=== PATIENT | female | born 1940 | race Caucasian/White ===

== ENCOUNTER → 2023-11-17 09:53 | Outpatient (REF) | payer OTHER, SELFPAY | LOC: RAD 09:53 | PROVIDERS: ATTENDING PHYSICIAN Surgery Vascular Surgery; FAMILY PHYSICIAN Family Medicine | DX: I73.9 Peripheral vascular disease, unspecified (principal) | CPT/HCPCS: 93922; 93925 ==

== ENCOUNTER → 2024-01-27 10:14 | Outpatient (REF) | payer OTHER, SELFPAY | LOC: RAD 10:14 | PROVIDERS: ATTENDING PHYSICIAN Internal Medicine Gastroenterology; FAMILY PHYSICIAN Family Medicine | DX: R63.4 Abnormal weight loss (principal) | CPT/HCPCS: 74176 ==

== ENCOUNTER → 2024-05-22 09:59 | Outpatient (REF) | payer OTHER, SELFPAY | LOC: RAD 09:59 | PROVIDERS: ATTENDING PHYSICIAN Surgery Vascular Surgery; FAMILY PHYSICIAN Family Medicine; REFERRING PHYSICIAN Orthopaedic Surgery | DX: I71.43 Infrarenal abdominal aortic aneurysm, without rupture (principal); I73.9 Peripheral vascular disease, unspecified | CPT/HCPCS: 76770; 93922; 93925 ==

== ENCOUNTER 2024-08-19 14:30 | Inpatient (IN) | payer OTHER, SELFPAY ==
[2024-08-19] VITALS (29 sets, daily range): BP systolic 103–203; BP diastolic 60–144; BMI 18.7; BMI 18.1
[2024-08-19 11:49] LABS: % Basophils 0.3 % (0-2); % Eosinophils 0.9 % (0-6); % Immature Granulocytes 0.3 % (0-0.5); % Lymphocytes 15.6 % (20.5-51.1); % Monocytes 6.4 % (1.7-9.3); % Neutrophils 76.5 % (42.2-75.2); Absolute Eosinophils 0.1 10^3/uL (0-0.7); Absolute Lymphocytes 1.2 10^3/uL (1.2-3.4); Absolute Monocytes 0.5 10^3/uL (0.1-0.6); Absolute Neutrophils 5.8 10^3/uL (1.4-6.5); Hematocrit 47.1 % (37.0-47.0); Hemoglobin 15.8 g/dL (12.0-16.0); Mean Corp Hgb Conc. 33.5 g/dL (33.0-37.0); Mean Corpuscular Hgb 33.5 pg (27.0-31.0); Mean Platelet Volume 11.4 fL (7.4-10.4); Nucleated Red Blood Cells % 0 %; Platelet Count 159 10^3/uL (130-400); Red Blood Cell Count 4.71 10^6/uL (4.20-5.40); Red Cell Dist. Width 12.4 % (11.5-14.5); White Blood Cell Count 7.5 10^3/uL (4.8-10.8)
[2024-08-19 12:11] LABS: Blood Urea Nitrogen 34 mg/dl (7-17); Calcium 9.4 mg/dl (8.4-10.2); Carbon Dioxide 25 mmol/L (22-30); Chloride 99 mmol/L (98-107); Estimated Creatinine Clearance 24 ml/min; Glucose 211 mg/dl (70-99); Sodium 132 mmol/L (135-145); eGFR 44.64
[2024-08-19 12:19] LABS: NT-proBNP 14500 pg/ml
[2024-08-19 12:35] LABS: Troponin I < 0.012 ng/ml
--- NOTE | 2024-08-19 12:59 | ED.GENMED ---
History of Present Illness
General
Chief Complaint: Breathing Problem
Source: patient and family
Exam Limitations: none
Time Seen by Provider: 08/19/24 11:24
History of Present Illness
History of Present Illness:
74-year-old female who presents with shortness of breath and increased work of breathing. Patient has a history of CHF as well as COPD. She also has a history of coronary disease. Patient states her symptoms have been progressive over the last 2
to 3 days. No reported fevers.
Past History
Past History
ED Past Medical History: CAD, CHF, COPD, GERD, HTN, Hypercholesterolemia, NIDDM, MS and Other (Ulcerative colitis, Pulmonary fibrosis, anemia, UTI, Fx Pelvis, Pyelonephritis)
ED Past Surgical History: Bowel resection (with Ileostomy due to Ulcerative colitis) and Cardiac (04/19/16: Cardiac cath with stent RCA, EF 55-60%.)
Social History
Tobacco: Former smoker
Alcohol: None
Drug: None
Personal:
Living: with family (with daughter)
Employment: Retired
Family History
Family History: Other (Noncontributory)
Phy Exam
Physical Exam
Physical Exam:
CONSTITUTIONAL Patient alert and oriented to person, place and time. Well-appearing. Vital signs reviewed.
HEAD atraumatic, normocephalic.
EYES eyelids normal to inspection, Extraocular muscles intact, Conjunctiva normal, Sclera normal.
NECK normal range of motion, Trachea midline, no jugular venous distention.
RESPIRATORY CHEST No respiratory distress noted, Chest expansion equal, Rales noted bilaterally
CARDIOVASCULAR regular rate and rhythm, Heart sounds normal.
ABDOMEN abdomen nontender, Bowel sounds normal. No distention.
BACK normal inspection, no obvious deformities
UPPER EXTREMITY range of motion normal, Motor strength normal, no cyanosis, no edema.
LOWER EXTREMITY range of motion normal, Motor strength normal, no cyanosis, no edema.
NEURO Speech normal, No focal motor deficits, Cranial Nerves intact to screening exam.
SKIN skin warm, dry, and normal in color.
Scores
Heart Failure Risk
Heart Failure Risk Score: Yes
History of Stroke or TIA: Yes
History of intubation for respiratory distress: No
Heart rate on ED arrival >/= 110: No
SaO2 <90% on arrival on room air: No
HR >/=110 during 3min walk test (or too ill to perform test): Yes
ECG has acute ischemic changes: No
Urea >/=12mmol/L (BUN 33.6mg/dL): Yes
Serum CO2>/=35mmol/L: No
Troponin I or T elevated to MS Level (0.4mg/dL): No
NT-proBNP >/=5,000ng/L (5,000pg/ml): Yes
HF Risk Score: 5
Admission Status: VERY HIGH RISK 39.8% Consider admission to hospital
Course
Orders/Labs/Results
Orders:
Orders
08/19/24 11:02
Electrocardiogram (*1) Urgent
Reason for Study: Shortness of Breath
EKG- Treatment ONCE
08/19/24 11:40
Electrocardiogram (*1) Stat
Reason for Study: Other
Other Reason for Exam: chest pain
Cardiac Monitoring- Treatment ONCE
CR Chest - 2 Views Urgent
Comment:
Reason For Exam: dyspnea
08/19/24 11:42
Basic Metabolic Panel Urgent
Complete Blood Count/With Diff Urgent
NT-proBNP Urgent
Troponin I Urgent
08/19/24 12:58
Furosemide [Lasix] 40 mg IV NOW STA
08/19/24 13:17
Nitroglycerin 100 mg/250 ml [Nitroglycerin Premix] 100 mg in 250 ml IV NOW
Initial dose in mcg/min, then titrate:: 5
Titrate to keep:: SBP < 160 mmHg
Titrate by mcg/min:: 5 mcg/min, may increase by 10 mcg/min if dose > 20 mcg/min
Frequency of titrations (minutes):: every 3-5 minutes
Maximum dose in mcg/min:: 200
Begin to taper infusion when:: Remained at goal for 2hrs
Taper by mcg/min:: 5 mcg/min
Frequency of taper (minutes) if patient maintains goal:: 30
Taper to off?: Yes
If infusion off & no longer maintaining goal:: Contact Provider
08/19/24 13:46
Admit/Transfer Patient As Directed
Co-Sign Provider:
Level of Care: Inpatient admission
Assign to:: IMU- Intermediate Care
Physician / Group: Alem
Diagnosis: CHF
Reason for Hospitalization: IV diuretics
Expected length of stay greater than two midnights?: Yes
ELOS- Estimated Length of Stay in days: 3
I certify the patient meets the requirements for IP care: Yes
08/19/24 13:48
Code Status As Directed
Resuscitation Status: Full Code
08/19/24 13:51
EKG- Treatment ONCE
08/19/24 14:02
Labetalol HCl [Trandate] 10 mg IV NOW STA
08/19/24 14:03
Furosemide [Lasix] 40 mg IV NOW STA
08/19/24 14:08
Troponin I Routine
08/19/24 14:22
Add On- LAB Urgent
Tests Added?: TSH w/Reflex
08/19/24 14:27
Bladder Scan As Directed
Follow Bladder Retention/Intermittent Cath Algorithm?: Yes
PRN if no void in __ hours: 6
Frequency: Per Retention Algorithm
If Bladder Scan Result >: 400
then:: Straight cath
Straight Cath As Directed
Frequency: Per Retention Algorithm
Additional Instructions: straight cath as needed per acute urinary retention algorithm for 24 hrs
Additional Instructions: for bladder scan greater than 400 mL
08/19/24 14:43
Arterial Blood Gas Urgent
%Oxygen/Room Air: 94% on 2L
08/19/24 Dinner
2000 calorie (17 carb) Diabetic
At Your Request: Limited Participation
Diabetic Diet: Sodium, 2 Gram
Oral Supplement (If unsure of flavor order apple or vanilla): Ensure Enlive Vanilla
Supplement Frequency: BID
08/19/24 15:19
Free T4 Urgent
TSH Reflex To Free T4 Urgent
Comment: ADD ON
08/19/24 17:43
Dextrose 50%-Water [Dextrose 50% Syringe] 12.5 grams IV [id number] PRN
Glucagon [GlucaGen] 1 mg IM PRN PRN
Heparin 5,000 units SC Q8
Insulin Aspart Corrective Low [Novolog Flexpen-Low Resistance] See Protocol SC AC
Nitroglycerin 100 mg/250 ml [Nitroglycerin Premix] 100 mg in 250 ml IV PER PROTOCOL
Currently infusing. Continue current dose and titrate:: Yes
Titrate to keep:: SBP < 160 mmHg
Titrate by mcg/min:: 5 mcg/min, may increase by 10 mcg/min if dose > 20 mcg/min
Frequency of titrations (minutes):: every 3-5 minutes
Maximum dose in mcg/min:: 200
Begin to taper infusion when:: Remained at goal for 2hrs
Taper by mcg/min:: 5 mcg/min
Frequency of taper (minutes) if patient maintains goal:: 30
Taper to off?: Yes
If infusion off & no longer maintaining goal:: Contact Provider
08/19/24 17:43
DIETARY CONSULT Routine
Reason for Consult: malnutrition
HF DIETARY CONSULT Routine
HF EDUCATOR CONSULT Routine
Comment:
Activity As Directed
Activity Level: Out of Bed- Chair
Bedside Glucose Monitoring As Directed
Frequency: AC&HS
Additional Instructions:: Change to q6h if pt on TPN, tube feeding or not eating
Intake/ Output As Directed
Frequency: Per unit guidelines
Patient Education As Directed
Type: CHF folder
Comment: give on admission. Document in Interdisciplinary Education record
Sleep Apnea Assessment by RN As Directed
Comment:
Physician Instructions:
Vital Signs As Directed
Frequency: Other
Additional Instructions:: Q12 or per unit guidelines if more frequent.
Weight As Directed
Frequency: Daily
Type of Scale: Standing Scale
Comment: Daily morning weight. If unable to stand, use balanced bed scale.
Weight As Directed
Frequency: Once
Type of Scale: Standing Scale
Comment: Upon Admission. If unable to stand, use balanced bed scale.
Pulse Ox/cont/shift [RESP] Routine
Quantity: 1
Special Instructions: Daily pulse oximetry at rest. If greater than 92% at rest also obtain pulse oximetry
while ambulating as tolerated.
DX Deep Vein Thrombosis Video Routine
08/19/24 20:00
Carvedilol [Coreg] 6.25 mg PO BID
08/20/24 05:02
Basic Metabolic Panel IN AM
Glycohemoglobin (HgbA1c) IN AM
Magnesium IN AM
TSH Reflex To Free T4 IN AM
08/20/24 08:00
Aspirin Low Dose EC [Aspir Low (Enteric Coated)] 81 mg PO DAILY
Carbamazepine [Tegretol] 200 mg PO DAILY
Furosemide [Lasix] 40 mg IV DAILY
Pantoprazole [Protonix] 40 mg PO DAILY
08/21/24 06:00
Basic Metabolic Panel IN AM
08/22/24 06:00
Basic Metabolic Panel IN AM
Abnormal Lab Results
08/19/24
11:42
Hct 47.1 H %
(37.0-47.0)
MCV 100.0 H fL
(81.0-99.0)
MCH 33.5 H pg
(27.0-31.0)
MPV 11.4 H fL
(7.4-10.4)
Neutrophils % 76.5 H %
(42.2-75.2)
Lymphocytes % 15.6 L %
(20.5-51.1)
Sodium 132 L mmol/L
(135-145)
BUN 34 H mg/dl
(7-17)
Creatinine 1.2 H mg/dL
(0.6-1.0)
Glucose 211 H mg/dl
(70-99)
08/19/24 11:42
08/19/24 13:46
Vital Signs
Initial and Last Documented VS:
Initial Vital Signs
Pulse Resp BP Pulse Ox
83 32 178/109 95
08/19/24 10:55 08/19/24 10:55 08/19/24 10:55 08/19/24 10:55
Last Documented Vital Signs
Temp Pulse Resp BP Pulse Ox
97.5 F 91 26 151/71 95
08/20/24 20:19 08/20/24 20:05 08/20/24 18:15 08/20/24 20:05 08/20/24 20:13
MDM/Problems Addressed
MDM/Problems Addressed:
Acute decompensated congestive heart failure, acute uncontrolled hypertension
*Radiology
Radiology exam reviewed: preliminary read by ED provider (CHF)
*Pulse Oximetry
Patient hypoxic: yes
*EKG
Interpreted by ED Provider?: Yes
Interpretation: abnormal
Rate: normal
Rhythm: sinus
QRS Pattern: right bundle branch block
Ischemia: non-specific ST changes
*Delivery Rep Interpretation
Rate: normal
Interpretation: normal
Rhythm: sinus
*Critical Care Note
Total Time (30-74mins, 75-104mins- exclusive of procedures): 30 minutes
Data Reviewed
Source: patient and family
Prescriptions/Medications Considered But Not Given:
Consider antibiotics but more suspect heart failure
Patient Management
Discussion with other providers: Hospitalist
Escalation/DeEscalation of care consider admission/obs:
84-year-old female presents with uncontrolled hypertension and heart failure. Given Lasix and started on nitroglycerin drip. Shortly at that she did feel bit worse and family thought it was related to nitroglycerin but I do suspect related to
progressive heart failure. Seen by cardiology. Admit
ED Attending Note
-
Portions of this chart may have been created with voice recognition software.� Occasional wrong word or��sound alike� substitutions may have occurred due to the inherent limitations of voice recognition software.
Discharge Plan
Departure
Patient Disposition: Admit
Date of Disposition: 08/19/24
Time of Disposition: 12:59
Admit to: Telemetry
Presentation/result/management discussed w/ accepting MD/DO: Hospitalist
Discharge Problem:
Congestive heart failure (CHF)
Interventions
Interventions:
*Risk Screen - Suicide Last Done: 08/19/24 10:55
*General Assessment Last Done: 08/19/24 11:25
*Neglect/Abuse Screening Last Done: 08/19/24 16:20
ED- Fall Risk Assessment Last Done: 08/19/24 11:28
*ED COVID-19 Vaccine History Last Done: 08/19/24 11:25
*Nursing Disposition Last Done: 08/19/24 17:43
ED- Cardiac Assessment Last Done: 08/19/24 11:25
ED- Pulmonary Assessment Last Done: 08/19/24 11:25
Discharge Date and Time
Discharge Date/Time: 08/19/24 17:44
[2024-08-19] MEDS: LASIX 40 MG IV ×2 (13:15→14:11)
--- NOTE | 2024-08-19 13:18 | HPS.HSE ---
Family Physician
-
Family Physician: Breanne Mayorga
Chief Complaint
-
Shortness of Breath
History of Present Illness
Patient is an 84 y/o female past medical history ASCVD, CHF, HTN, and DM who presents with increasing shortness of breath. Patient reports worsening shortness of breath over the past 2 days. She denied chest pain during my initial interview, but
then reported chest pain to nurse. She does not weight herself on a regular basis. She denies cough, fever, sweats or chills.
Medical History
Past Medical History
Past Medical History: Reports Other
Additional Past Medical History:
ASCVD (CAD, PAD, CVA)
Chronic Heart Failure
Essential Hypertension
Hyperlipidemia
Diabetes Mellitus, Type II
CKD Stage II
COPD
Seizure Disorder
Hyperthyroidism
Depression
Past Surgical History: Reports Other
Additional Past Surgical History:
AAA Endovascular Repair / Fem-Fem Bypass / RLE Endarterectomy
Colectomy with Ileostomy
Right Total Knee Replacement
Left Wrist Surgery ORIF
Social History
Tobacco: Former Smoker (Quit about 20 years ago)
Living: With Family
Family History
Family History: Not pertinent
Allergies / Home Medications
Allergies reflects when Allergies were last updated in [employer].
Home Medications with original date entered in [employer]
Allergy/Medication List:
Allergies
Allergy/AdvReac Type Severity Reaction Status Date / Time
atorvastatin Allergy MUSCLE Verified 08/19/24 10:54
ACHES
ceftriaxone sodium Allergy RED RAISED Verified 08/19/24 10:54
[From Rocephin] HIVES
levofloxacin [From Levaquin] Allergy Rash, Verified 08/19/24 10:54
chest pain
phenytoin Allergy INCREASED Verified 08/19/24 10:54
SEIZURES
Home Medications
aspirin 81 mg tablet,delayed release 81 mg PO DAILY 05/27/16
carbamazepine 200 mg tablet 200 mg PO DAILY 05/27/16
cholecalciferol (vitamin D3) 25 mcg (1,000 unit) tablet 1,000 units PO WE 01/28/17
ferrous sulfate 325 mg (65 mg iron) tablet (FeroSul) 325 mg PO WE 01/25/19
furosemide 20 mg tablet 20 mg PO MOWEFR 01/25/19
carvedilol 6.25 mg tablet 6.25 mg PO BID ##60 05/04/19
omeprazole magnesium 20 mg tablet,delayed release (Prilosec OTC) 20 mg PO DAILY 06/26/19
evolocumab 140 mg/mL subcutaneous pen injector (Repatha SureClick) 140 mg SC Q2W 08/19/24
Review of Systems
-
A 12 point ROS was completed and negative except as noted: Yes
Constitutional: Denies Fever or Chills
Respiratory: Reports See HPI
Cardiac: Denies Palpitations
Physical Exam
Vital Signs
Vital Signs
Temp Pulse Resp BP Pulse Ox
97.8 F 95 22 203/104 95
08/19/24 11:35 08/19/24 13:15 08/19/24 12:15 08/19/24 13:15 08/19/24 12:15
Physical Exam
General: Conversant and Other (Appears frail; Mild Respiratory Distress)
HEENT: Moist mucous membranes and Oxygen
Respiratory: Rales (Diffuse) and Other (Decreased breath sounds at bilateral bases with Bilateral Rales in mid lung soto; Positive use of accessory muscles)
Cardiac: S1/S2 and Regular Rhythm
GI: Soft, Non Tender and Ostomy
Rectal: Deferred by Provider
Musculoskeletal: No Clubbing, No Cyanosis and No Edema
Skin: Warm and Dry
Neuro: Awake, Alert, Oriented and Nonfocal/grossly intact
Psych: Calm
Laboratory Results
-
08/19/24 11:42
Laboratory Results
Total Bilirubin Cancelled 08/19/24 11:42
AST Cancelled 08/19/24 11:42
ALT Cancelled 08/19/24 11:42
Alkaline Phosphatase Cancelled 08/19/24 11:42
Troponin I < 0.012 ng/ml 08/19/24 11:42
Data Reviewed
-
Diagnostic Radiology: Report Reviewed by me
Lab Data: Labs Reviewed by me
Impression/Plan
-
Hypertensive Emergency in setting of Acute Heart Failure
-Give Labetalol 10mg IV Now
-Continue nitroglycerin infusion
Acute on Chronic HFpEF
-Patient with increase respiratory distress upon my evaluation
-Patient given Lasix 40mg IV initially - Will give second dose of 40mg IV Now
-Check ABG - Consider BiPAP based on result
-Check Echo
-Monitor Is&Os and Daily Weights
ASCVD (CAD s/p cardiac stent, PAD s/p AAA repair, fem-fem bypass and RLE bypass)
-Continue aspirin
Diabetes Mellitus, Type II
-Patient is not currently on medications
-Check HgbA1c
-Monitor sugars and continue coverage insulin
CKD Stage III
-Monitor creatinine closely while on diuretics
Seizure Disorder
-Continue Tegretol
Hyperthyroidism
-Patient no longer on methimazole
-Check TSH
Hyperlipidemia
-Patient maintained on Repatha as outpatient
DVT proph: SC Heparin
Code Status: Full Code
[2024-08-19] MEDS: NITROGLYCERIN PREMIX 250 IV (13:24)
[2024-08-19] MEDS: TRANDATE 10 MG IV (14:12)
--- NOTE | 2024-08-19 14:18 | W.PN.UPDATE ---
Update Note
Progress Note Update
This is an addendum to the H&P written by Marli Keen on 08/19/2024. Patient seen and examined independently with PA.
84-year-old female past medical history of CAD, mitral regurgitation, hypertension, type 2 diabetes, COPD, seizure disorder, hyperlipidemia, CVA, ulcerative colitis, abdominal aortic aneurysm status post endovascular repair, right iliac artery coil
embolization, left femoral endarterectomy, left to right femoral artery to femoral artery bypass, CKD presenting with shortness of breath and respiratory distress.
Found to have blood pressure up to 203/104.
Chest x-ray shows interstitial opacities, small bilateral pleural effusions cardiomegaly. Cardiac BNP of 14,000.
Patient with hypertensive emergency and acute CHF exacerbation.
She was given 40 IV Lasix and started nitroglycerin drip. She had increased respiratory distress and some chest pain prompting repeat EKG. Another 40 IV Lasix to be given.
IV labetalol dose to be given. Patient's respiratory status currently improved. No chest pain or abdominal pain at this time. Check ABG as she may benefit from BiPAP. Cardiology following.
[2024-08-19 14:44] LABS: Troponin I < 0.012 ng/ml
--- NOTE | 2024-08-19 14:47 | CON.CAR ---
Consultation
Consultation Request
Date/Time Consultation Requested: 08/19/24
Date/Time Consultation Performed: 08/19/24
Requesting Provider: Hortencia
Performing Provider: Grace
Reason for Consultation: CHF/HTN
Medical History
-
Chief Complaint: SOB
History of Present Illness:
84-year-old woman past medical history of heart failure with recovered ejection fraction and hypertension who presents with worsening dyspnea over the last several days found to be hypoxic and hypertensive. Severe range blood pressures in the
emergency department. Chest x-ray with diffuse infiltrates suggestive of pulmonary edema. proBNP severely elevated to 14,000.
Patient was treated for acute heart failure/hypertensive emergency with nitro drip and dose of IV Lasix. At the time of my evaluation blood pressures were still significantly elevated. Patient reportedly did not have significant urine output in
response to the Lasix.
Also reporting nausea and upset stomach but no pain. No radiation through to the back.
Past Medical History:
ASCVD (CAD, PAD, CVA)
Chronic Heart Failure
Essential Hypertension
Hyperlipidemia
Diabetes Mellitus, Type II
CKD Stage II
COPD
Seizure Disorder
Hyperthyroidism
Depression
Past Surgical History: Reports Other
Additional Past Surgical History:
AAA Endovascular Repair / Fem-Fem Bypass / RLE Endarterectomy
Colectomy with Ileostomy
Right Total Knee Replacement
Left Wrist Surgery ORIF
Past Medical History
Past Medical History: Other (As above)
Past Surgical History: Other (As above)
Social History
Tobacco: Former Smoker
Family History
Family History: Reviewed & Not Pertinent
Allergies / Home Medications
Allergy/AdvReac Type Severity Reaction Status Date / Time
atorvastatin Allergy MUSCLE Verified 08/19/24 10:54
ACHES
ceftriaxone sodium Allergy RED RAISED Verified 08/19/24 10:54
[From Rocephin] HIVES
levofloxacin [From Levaquin] Allergy Rash, Verified 08/19/24 10:54
chest pain
phenytoin Allergy INCREASED Verified 08/19/24 10:54
SEIZURES
�Medication �Instructions �Recorded �Confirmed �Type
aspirin 81 mg tablet,delayed 81 mg PO DAILY 05/27/16 08/19/24 History
release
carbamazepine 200 mg tablet 200 mg PO DAILY 05/27/16 08/19/24 History
cholecalciferol (vitamin D3) 25 1,000 units PO WE 01/28/17 08/19/24 History
mcg (1,000 unit) tablet
ferrous sulfate 325 mg (65 mg 325 mg PO WE 01/25/19 08/19/24 History
iron) tablet (FeroSul)
furosemide 20 mg tablet 20 mg PO MOWEFR 01/25/19 08/19/24 History
carvedilol 6.25 mg tablet 6.25 mg PO BID ##60 05/04/19 08/19/24 Rx
omeprazole magnesium 20 mg 20 mg PO DAILY 06/26/19 08/19/24 History
tablet,delayed release (Prilosec
OTC)
evolocumab 140 mg/mL subcutaneous 140 mg SC Q2W 08/19/24 08/19/24 History
pen injector (Repatha Aleciaick)
Review of Systems
-
History Source: Patient
All other systems: Negative unless noted
Physical Exam
Vital Signs
Temp Pulse Resp BP Pulse Ox
97.8 F 100 25 193/140 92
08/19/24 11:35 08/19/24 14:15 08/19/24 12:30 08/19/24 14:12 08/19/24 14:15
Lab Results
08/19/24 11:42
Troponin I < 0.012 ng/ml 08/19/24 14:08
Mhq-C-Gjzbaapvcop Pept 19921 pg/ml 08/19/24 11:42
Physical Exam
General: Other (Frail-appearing)
HEENT: Normocephalic
Respiratory: Crackles (Throughout) and Accessory Resp Muscle Use
Cardiac: S1/S2 and Regular Rhythm (Tachycardic)
Breast: Deferred by me
GI: Other (Ostomy in place)
Musculoskeletal: No Edema
Skin: Warm and Dry
Neuro: Awake and Alert
Psych: Other (Anxious)
Impression / Plan
-
Primary teaching fellow: Dr. Odom
Assessment:
Presentation with SOB
Acute on chronic HFpEF
HTN emergency
Recovered CM EF 35% by echo 03/28/17
CAD with h/o NSTEMI and RCA PCI 04/2016
H/o BMS to RCA 2008
H/o anterior [place] s/p BMS to LAD, RCA 2006
Interstitial fibrosis
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
AAA
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
Hx L radius s/p ORIF, L prox humerus, L pelvic fracture 2013
Left lung nodule
RBBB
HTN
HLD
NIDDM
H/o seizure disorder
H/o urinary retention
Multiple medication allergies/intolerances/noncompliance
Echo 04/2019: EF 60-65%, mild MR, aortic sclerosis
Plan:
-Presents with worsening dyspnea found to be in acute heart failure with severe range blood pressures concerning for hypertensive emergency
#Acute HF
-proBNP is severely elevated and chest x-ray suggestive of pulmonary edema
-Recommend aggressive IV diuresis, would redosed again this evening
-Currently on supplemental O2 with nasal cannula, consider positive pressure such as CPAP
-Check echo tomorrow
#HTN emergency
-Severe range blood pressures in the emergency department
-Started on nitro drip at 5, would uptitrate for goal normotension
-Also recommended IV labetalol for additional BP control
Discussed with daughter at bedside as well as admitting team PA/
Data Reviewed
-
EKG: Tracing Personally Visualized and interpreted
Radiology: Image Personally Visualized and interpreted
Medical Tests (Nuc Med, Echo etc): Report Reviewed by me
Labs: Labs Reviewed by me
Old Records: Reviewed
[2024-08-19 14:55] LABS: B.E. -0.2 mmol/L; HCO3 24.8 mmol/L (21-28); O2 Saturation % 95.8 % (94-98); PCO2 41 mmHg (32-35); PO2 68 mmHg (83-108); pH 7.39 (7.35-7.45)
[2024-08-19 16:13] LABS: TSH Reflex To Free T4 0.36 uIU/ml (0.47-4.68)
[2024-08-19 18:03] LABS: Free T4 1.77 ng/dl (0.78-2.19)
--- NOTE | 2024-08-19 18:10 | PTCARENOTE ---
patient received on stretcher from ED; AAOx3. Calm and in no obvious distress. O2 2L nc; pox 98%. Sinus rhythm on telemetry with rate in 80's. B/p is elevated at 183/94; nitro drip at 7mcg/min via right AC. Lung sounds with fine crackles 1/[address] up
posterior soto bilaterally. Oriented to room. Call lane in reach. bed in lowest position. b/p repeated to be 191/99. nitro drip titrated up by 5mcg/min per protocol; current rate 12mcg/min. continuing to closely monitor.
[2024-08-19 18:38] LABS: Glucose - Point of Care 136 mg/dl (70-99)
[2024-08-19] MEDS: NOVOLOG FLEXPEN-LOW RESISTANCE SC (18:43)
[2024-08-19] MEDS: HEPARIN 5000 UNITS SC ×2 (18:48→23:06)
[2024-08-19 19:53] LABS: ALT (SGPT) 40 U/L (0-35); AST (SGOT) 38 U/L (14-36); Albumin 3.8 g/dl (3.5-5.0); Alkaline Phosphatase 110 U/L (38-126); Direct Bilirubin 0.3 mg/dl (0.0-0.4); Potassium 3.9 mmol/L (3.5-5.1); Total Bilirubin 0.9 mg/dl (0.2-1.3); Total Protein 6.4 g/dl (6.3-8.2)
[2024-08-19] MEDS: COREG 6.25 MG PO (21:04)
[2024-08-19] MEDS: LASIX 80 MG IV (21:04)
[2024-08-19 21:22] LABS: Glucose - Point of Care 164 mg/dl (70-99)
[2024-08-20] VITALS (28 sets, daily range): BP systolic 95–176; BP diastolic 44–80; BMI 17.6
[2024-08-20] MEDS: TYLENOL 650 MG PO ×2 (05:43→12:54)
--- NOTE | 2024-08-20 06:00 | PTCARENOTE ---
Addendum entered by Meron Enciso RN 08/20/24 06:09:
up to 15mcg/min.
Original Note:
No acute events overnight. Remains on nitro gtt to maintain systolic BPs below 160. Current rate at 10mcg/min. Remains on 2 liters NC.
[2024-08-20 06:37] LABS: TSH Reflex To Free T4 0.42 uIU/ml (0.47-4.68)
[2024-08-20 06:38] LABS: Blood Urea Nitrogen 37 mg/dl (7-17); Calcium 9.2 mg/dl (8.4-10.2); Carbon Dioxide 28 mmol/L (22-30); Chloride 97 mmol/L (98-107); Estimated Creatinine Clearance 21 ml/min; Glucose 135 mg/dl (70-99); Magnesium 1.7 mg/dl (1.6-2.3); Sodium 135 mmol/L (135-145); eGFR 40.55
[2024-08-20 08:07] LABS: Glucose - Point of Care 151 mg/dl (70-99)
[2024-08-20] MEDS: ASPIR LOW (ENTERIC COATED) 81 MG PO (08:15)
[2024-08-20] MEDS: TEGRETOL 200 MG PO (08:15)
[2024-08-20] MEDS: LASIX 40 MG IV ×2 (08:15→17:09)
[2024-08-20] MEDS: PROTONIX 40 MG PO (08:15)
[2024-08-20] MEDS: COREG 6.25 MG PO ×2 (08:15→20:05)
[2024-08-20] MEDS: HEPARIN 5000 UNITS SC ×2 (08:15→17:09)
[2024-08-20] MEDS: NOVOLOG FLEXPEN-LOW RESISTANCE 1 UNITS SC ×2 (09:06→12:49)
[2024-08-20 09:33] LABS: Glycohemoglobin (HgbA1c) 6.7 % (4.0-5.6)
--- NOTE | 2024-08-20 09:36 | W.PN.CARDCBS ---
Today's Communication / Plan
-
Continue IV Lasix
Add Norvasc for hypertension
Impression / Plan
-
Primary software applications designer: Dr. Odom
Assessment:
Presentation with SOB
Acute on chronic HFpEF
HTN emergency
Recovered CM EF 35% by echo 03/28/17
CAD with h/o NSTEMI and RCA PCI 04/2016
H/o BMS to RCA 2008
H/o anterior [place] s/p BMS to LAD, RCA 2006
Interstitial fibrosis
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
AAA
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
Hx L radius s/p ORIF, L prox humerus, L pelvic fracture 2013
Left lung nodule
RBBB
HTN
HLD
NIDDM
H/o seizure disorder
H/o urinary retention
Multiple medication allergies/intolerances/noncompliance
Echo 04/2019: EF 60-65%, mild MR, aortic sclerosis
Plan:
She appears improved from an oxygenation standpoint
Will continue IV Lasix but follow creatinine which is 1.3
Weight is decreased from 95 pounds to 90 pounds since admission
Check echo
She remains hypertensive
Continue Coreg
Add Norvasc
Progress Note - Lead Software Engineer
Subjective
Date of Service: August 20, 2024
No complaints
Objective
Labs:
08/19/24 11:42
08/20/24 05:02
Labs
Hgb 15.8 g/dL (12.0-16.0) 08/19/24 11:42
Hct 47.1 % (37.0-47.0) H 08/19/24 11:42
Plt Count 159 10^3/uL (130-400) 08/19/24 11:42
Sodium 135 mmol/L (135-145) 08/20/24 05:02
Potassium 4.0 mmol/L (3.5-5.1) 08/20/24 05:02
BUN 37 mg/dl (7-17) H 08/20/24 05:02
Creatinine 1.3 mg/dL (0.6-1.0) H 08/20/24 05:02
Glucose 135 mg/dl (70-99) H 08/20/24 05:02
Troponins
08/19/24 08/19/24
11:42 14:08
Troponin I < 0.012 < 0.012
Vital Signs and I&O:
Vital Signs
Temp Pulse Resp BP Pulse Ox
98.2 F 81 26 176/79 94
08/20/24 07:30 08/20/24 08:15 08/20/24 05:48 08/20/24 08:15 08/20/24 05:48
Vital Signs
Temp Pulse Resp BP Pulse Ox
98.2 F 81 26 176/79 94
08/20/24 07:30 08/20/24 08:15 08/20/24 05:48 08/20/24 08:15 08/20/24 05:48
Intake & Output
08/18/24 08/19/24 08/20/24 08/21/24
06:59 06:59 06:59 06:59
Intake Total 240 / 240
Output Total 1000 / 1000
Balance -760 / -760
Physical Exam
Physical Exam
General: Well developed, well nourished in NAD.
Neck: Supple, no JVD, HJR, carotids +2 B/L, no bruits bilaterally.
Heart: Non displaced PMI, RRR, no murmurs, No S3, S4, no rubs.
Lungs: Scattered rhonchi
Extremities: No clubbing, cyanosis or edema bilaterally.
Neuro: Grossly nonfocal, awake, alert and oriented x3.
[2024-08-20] MEDS: NORVASC 5 MG PO (11:12)
--- NOTE | 2024-08-20 11:33 | W.PN.HOSP.TC ---
Today's Communication/Plan
-
Echo pending
Continue with diuresis
Continue nitro weaning trial
Norvasc added
Monitor blood pressure
Assessment / Plan
Assessment / Plan
General: Conversant and cachetic
HEENT: Moist mucous membranes and Oxygen
Respiratory: Rales (Diffuse)
Cardiac: S1/S2 and Regular Rhythm
GI: Soft, Non Tender and Ostomy
Rectal: Deferred by Provider
Musculoskeletal: No Clubbing, No Cyanosis and No Edema
Skin: Warm and Dry
Neuro: Awake, Alert, Oriented and Nonfocal/grossly intact
Psych: Calm
Hypertensive Emergency in setting of Acute Heart Failure
-Give Labetalol 10mg IV Now
-Continue nitroglycerin infusion. Ongoing weaning trial.
-Continue with carvedilol. Norvasc added. Blood pressure improving.
Acute on Chronic HFpEF
Acute hypoxic respiratory insufficiency resolved
-Status post aggressive diuresis on admission. Remains on 40 mg IV Lasix.
-Check Echo
-Monitor Is&Os and Daily Weights
-Cardiology following
ASCVD (CAD s/p cardiac stent, PAD s/p AAA repair, fem-fem bypass and RLE bypass)
-Continue aspirin
Diabetes Mellitus, Type II
-Patient is not currently on medications
-Check HgbA1c at 6.7
-Monitor sugars and continue coverage insulin
CKD Stage III
-Monitor creatinine closely while on diuretics
Seizure Disorder
-Continue Tegretol
Hyperthyroidism
-Patient no longer on methimazole
-Thyroid function results with subclinical hyperthyroidism
-repeat testign 5-6 weeks
Hyperlipidemia
-Patient maintained on Repatha as outpatient
DVT proph: SC Heparin
Code Status: Full Code
Anticipated Discharge: > 48 hours
Subjective/Interval History
-
Date of Service: August 20, 2024
Denies any chest pain or shortness of breath
Off oxygen on room air
Remains on nitroglycerin drip
Objective Data
-
Labs:
Laboratory Results
08/20/24
05:02
Sodium 135
Potassium 4.0
Chloride 97 L
Carbon Dioxide 28
BUN 37 H
Creatinine 1.3 H
Glucose 135 H
Calcium 9.2
Vital Signs:
Vital Signs
Temp Pulse Resp BP Pulse Ox
97.5 F 78 23 101/64 92
08/20/24 11:31 08/20/24 11:12 08/20/24 09:30 08/20/24 11:12 08/20/24 09:30
I&O
08/19/24 08/20/24 08/21/24
06:59 06:59 06:59
Intake Total 240 / 240
Output Total 1000 / 1000
Balance -760 / -760
Data Reviewed
-
Total Time Spent with Patient (in minutes): 55
[2024-08-20 12:36] LABS: Glucose - Point of Care 166 mg/dl (70-99)
--- NOTE | 2024-08-20 14:00 | CHAP ---
Father Catarino Ya of [facility] in [place] anointed Caitlyn. Time uncertain.
--- NOTE | 2024-08-20 16:03 | PTCARENOTE ---
Patient AOx3. Patient on RA. NSR on monitor. Nitro gtt weaned and turned off per order. Colostomy draining brown stool. Purewick draining yellow urine. Assist x1 to sit on side of bed. Call lane within reach, bed in lowest position, and bed of
wheels locked.
[2024-08-20 16:56] LABS: Glucose - Point of Care 125 mg/dl (70-99)
[2024-08-20] MEDS: NOVOLOG FLEXPEN-LOW RESISTANCE SC (16:56)
--- NOTE | 2024-08-20 17:03 | CM ---
Addendum entered by Neida Anderson RN 08/22/24 10:52:
Patient has colostomy.
Original Note:
Patient with Hx Ileostomy with Dx Hypertensive Emergency in setting of Acute Heart Failure. Room air. Nitro gtt weaned off today.
Met with patient who resides in a 2 story in-law unit at her daughter's house, with chair lift.
The patient was independent in ADLs and ambulation.
She does her own ostomy care.
DME - RW, SPC, ostomy supplies
Prior [facility]
Prior [facility].
PCP - Breanne Mayorga
Pharmacy - [facility]
No CM d/c needs identified.
Plan home.
[2024-08-20 21:33] LABS: Glucose - Point of Care 107 mg/dl (70-99)
--- NOTE | 2024-08-20 22:51 | PTCARENOTE ---
Caring for pt overnight. aaox2, confused and forgetful in beginning of shift. Pulled out IV and was asking confusing questions. Denies pain. Remains RA. NSR. Bed alarm on. Will monitor to monitor.
[2024-08-21] VITALS (31 sets, daily range): BP systolic 122–198; BP diastolic 57–119; PULSE 79–115; O2SAT 94; BMI 16.9
[2024-08-21] MEDS: HEPARIN 5000 UNITS SC ×4 (00:30→23:13)
--- NOTE | 2024-08-21 00:45 | PTCARENOTE ---
Nitro gtt turned back on. BP 198/99.
[2024-08-21 06:13] LABS: Blood Urea Nitrogen 46 mg/dl (7-17); Calcium 9.1 mg/dl (8.4-10.2); Carbon Dioxide 34 mmol/L (22-30); Chloride 95 mmol/L (98-107); Estimated Creatinine Clearance 17 ml/min; Glucose 113 mg/dl (70-99); Potassium 3.6 mmol/L (3.5-5.1); Sodium 135 mmol/L (135-145); eGFR 34.15
[2024-08-21 08:02] LABS: Glucose - Point of Care 125 mg/dl (70-99)
[2024-08-21] MEDS: NOVOLOG FLEXPEN-LOW RESISTANCE SC ×2 (08:28→16:54)
[2024-08-21] MEDS: COREG 6.25 MG PO ×2 (08:29→20:23)
[2024-08-21] MEDS: TEGRETOL 200 MG PO (08:29)
[2024-08-21] MEDS: PROTONIX 40 MG PO (09:05)
[2024-08-21] MEDS: NORVASC 10 MG PO (09:05)
[2024-08-21] MEDS: ASPIR LOW (ENTERIC COATED) 81 MG PO (09:05)
[2024-08-21] MEDS: LASIX 40 MG IV (09:06)
--- NOTE | 2024-08-21 09:39 | W.PN.CARDCBS ---
Today's Communication / Plan
-
Likely over diuresed with creatinine of 1.5
Hold IV Lasix
Workup for change in mental status in progress
Impression / Plan
-
Primary medical laboratory technician: Dr. Odom
Assessment:
Change in mental status 08/21/2024
Presentation with SOB
Acute on chronic HFpEF
HTN emergency
Recovered CM EF 35% by echo 03/28/17
CAD with h/o NSTEMI and RCA PCI 04/2016
H/o BMS to RCA 2008
H/o anterior [place] s/p BMS to LAD, RCA 2006
Interstitial fibrosis
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
AAA
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
Hx L radius s/p ORIF, L prox humerus, L pelvic fracture 2013
Left lung nodule
RBBB
HTN
HLD
NIDDM
H/o seizure disorder
H/o urinary retention
Multiple medication allergies/intolerances/noncompliance
Echo 04/2019: EF 60-65%, mild MR, aortic sclerosis
Echocardiogram 08/20/2024: Ejection fraction 50 to 55%, mild to moderate MR, mild AI, pleural effusion, sinus of Valsalva measuring 4.0 cm with mildly dilated aortic root
Plan:
She is confused today. Workup in progress including head CT.
She appears improved from an oxygenation standpoint and remains on room air
Will hold IV Lasix with creatinine of 1.5 on 08/21 which had worsened from 1.3 on 08/20
Weight is decreased from 95 pounds to 86 pounds on 08/21 since admission
Likely overdiuresed
Echocardiogram stable
She remains hypertensive and Norvasc was added on 08/20
Progress Note - Presser Automatic
Subjective
Date of Service: August 21, 2024
No complaints but appears confused
Objective
Labs:
08/19/24 11:42
08/21/24 05:07
Labs
Hgb 15.8 g/dL (12.0-16.0) 08/19/24 11:42
Hct 47.1 % (37.0-47.0) H 08/19/24 11:42
Plt Count 159 10^3/uL (130-400) 08/19/24 11:42
Sodium 135 mmol/L (135-145) 08/21/24 05:07
Potassium 3.6 mmol/L (3.5-5.1) 08/21/24 05:07
BUN 46 mg/dl (7-17) H 08/21/24 05:07
Creatinine 1.5 mg/dL (0.6-1.0) H 08/21/24 05:07
Glucose 113 mg/dl (70-99) H 08/21/24 05:07
Troponins
08/19/24 08/19/24
11:42 14:08
Troponin I < 0.012 < 0.012
Vital Signs and I&O:
Vital Signs
Temp Pulse Resp BP Pulse Ox
98.8 F 82 19 157/81 91
08/21/24 07:34 08/21/24 09:06 08/21/24 06:15 08/21/24 09:06 08/21/24 06:15
Vital Signs
Temp Pulse Resp BP Pulse Ox
98.8 F 82 19 157/81 91
08/21/24 07:34 08/21/24 09:06 08/21/24 06:15 08/21/24 09:06 08/21/24 06:15
Intake & Output
08/19/24 08/20/24 08/21/24 08/22/24
06:59 06:59 06:59 06:59
Intake Total 240 / 240
Output Total 1000 / 1000 400 / 400
Balance -760 / -760 -400 / -400
Physical Exam
Physical Exam
General: Awake but confused
Neck: Supple, no JVD, HJR, carotids +2 B/L, no bruits bilaterally.
Heart: Non displaced PMI, RRR, no murmurs, No S3, S4, no rubs.
Lungs: Scattered rhonchi.
Extremities: No clubbing, cyanosis or edema bilaterally.
Neuro: Awake but confused
--- NOTE | 2024-08-21 10:11 | VNURNOTE ---
Home Health Liaison spoke with sierra's daughter Rosalba to discuss [facility] nurse/therapy, visits, schedule and homebound status. She familiar with [facility]. Daughter is agreeable and understands that visits at home will be 2-3 x per week to assess and
teach medical management. She confirms that the patient has a scale at home and lives in an in-law suite at her daughter's house. Daughter is aware that [facility] will contact them for start of care in 1-2 days after discharge from . [facility] referral
completed in [facility].
--- NOTE | 2024-08-21 10:13 | W.PN.HOSP.TC ---
Today's Communication/Plan
-
Monitor blood pressure
May need additional agents
Hold IV diuresis
Monitor creatinine
Monitor mentation
PT/OT
Assessment / Plan
Assessment / Plan
General: Conversant and cachetic
HEENT: Moist mucous membranes and Oxygen
Respiratory: Rales (Diffuse)
Cardiac: S1/S2 and Regular Rhythm
GI: Soft, Non Tender and Ostomy
Rectal: Deferred by Provider
Musculoskeletal: No Clubbing, No Cyanosis and No Edema
Skin: Warm and Dry
Neuro: Awake, Alert, Oriented and Nonfocal/grossly intact
Psych: Calm
Hypertensive Emergency in setting of Acute Heart Failure
-Give Labetalol 10mg IV Now
-Wean nitroglycerin off
-Continue with carvedilol. Norvasc added and dose increased to 10 mg.
Acute on Chronic HFpEF
Acute hypoxic respiratory insufficiency resolved
-Status post aggressive diuresis on admission.
-Echo with EF of 50 to 55%. Diastolic function indeterminate. Mild to moderate mitral regurgitation. Mild aortic regurgitation. Pleural effusion present.
-Monitor Is&Os and Daily Weights
-Cardiology following
Toxic metabolic encephalopathy likely secondary hypertension encephalopathy versus delirium
-CT head was checked and found to be negative.
-Mentation seems to be improving. Avoid any benzos or narcotics if possible.
-Continue to be oriented.
-Encourage sleep at bedtime.
ASCVD (CAD s/p cardiac stent, PAD s/p AAA repair, fem-fem bypass and RLE bypass)
-Continue aspirin
Diabetes Mellitus, Type II
-Patient is not currently on medications
-Check HgbA1c at 6.7
-Monitor sugars and continue coverage insulin
DANA on CKD Stage III
-Possibly overdiuresis and will hold further IV diuretics.
Seizure Disorder
-Continue Tegretol
Hyperthyroidism
-Patient no longer on methimazole
-Thyroid function results with subclinical hyperthyroidism
-repeat testign 5-6 weeks
Hyperlipidemia
-Patient maintained on Repatha as outpatient
DVT proph: SC Heparin
Code Status: Full Code
PT/OT
Anticipated Discharge: > 48 hours
Subjective/Interval History
-
Date of Service: August 21, 2024
Overnight patient with confusion
this morning pt states mentation improved and was able to recall events of hospitalization so far
Objective Data
-
Labs:
Laboratory Results
08/21/24
05:07
Sodium 135
Potassium 3.6
Chloride 95 L
Carbon Dioxide 34 H
BUN 46 H
Creatinine 1.5 H
Glucose 113 H
Calcium 9.1
Vital Signs:
Vital Signs
Temp Pulse Resp BP Pulse Ox
98.8 F 82 19 157/81 91
08/21/24 07:34 08/21/24 09:06 08/21/24 06:15 08/21/24 09:06 08/21/24 06:15
I&O
08/20/24 08/21/24 08/22/24
06:59 06:59 06:59
Intake Total 240 / 240
Output Total 1000 / 1000 400 / 400
Balance -760 / -760 -400 / -400
Data Reviewed
-
Total Time Spent with Patient (in minutes): 55
[2024-08-21] MEDS: TYLENOL PO (10:46)
--- NOTE | 2024-08-21 10:52 | PTCARENOTE ---
Addendum entered by Frances Hurt RN 08/21/24 12:11:
Patient refused PRN tylenol upon attempt to administer. At this time patient sitting in chair at bedside and states she does not have any pain.
Original Note:
Patient c/o pain 410 to RLQ, lateral to stoma, confirms she has had this pain before and prn tylenol helps relieve pain. Area assessed, no noted redness, edema, or irritation noted. Skin intact. PRN tylenol administered at this time. Will continue
to monitor.
[2024-08-21 12:57] LABS: Glucose - Point of Care 268 mg/dl (70-99)
[2024-08-21] MEDS: NOVOLOG FLEXPEN-LOW RESISTANCE 3 UNITS SC (14:32)
--- NOTE | 2024-08-21 14:37 | PN.CDI ---
CDI
- -
CDI:
Physician Documentation Request
Admit Date: 08/19/24 14:30
Dear Doctor Radha,
Please review the following and provide your response in the progress notes.
Clinical Indicators:
Pt admitted with hypertensive emergency and acute on chronic HFpEF
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 This reflects significant 25lb, 28%
wt loss over 2 months....Skin- intact with observable severe loss of subcutaneous fat (tricep, ribcage) and severe loss muscle (clavicle, pectoralis).
Pt meets ASPEN/AND criteria for severe protein calorie malnutrition of chronic illness with >5% weight loss x 1month and severe loss of subcutaneous fat/muscle.'
Based on the above information and your assessment, which of the following most accurately represents the patient's nutritional status?
Severe protein calorie Malnutrition
Other
Alma Criteria (ACP Hospitalist 2017)
2 or more criteria must be present for either
non severe or severe malnutrition
Note that the criteria differs related to the
presence of an acute or chronic illness
Chronic Illness
Energy Intake Non Severe: <75% for >1 month
Severe: <75% for >1 month
Weight Loss Non Severe: 5% over 1 month
7.5% over 3 months
10% over 6 months
20% over 1 year
Severe: >5% over 1 month
>7.5% over 3 months
>10% over 6 months
>20% over 1 year
Body Fat Non Severe: Mild Loss
Severe: Severe Loss
Muscle Mass Non Severe: Mild Loss
Severe: Severe Loss
Additional criteria that can be used to Determine if Mild or Moderate Malnutrition (Merck Manual 2018)
Use of terms such as suspected, likely, concern for, or probable (associated with a specific diagnosis that is being evaluated, monitored, or treated as if it exists) are acceptable and can be coded in the inpatient setting, when documented at the
time of discharge.
Thank you,
Irina Hugo RN, BSN
CDI Specialist
[employer]
Please use your independent medical judgment in providing your response.
[2024-08-21 17:01] LABS: Glucose - Point of Care 59 mg/dl (70-99)
[2024-08-21 17:25] LABS: Glucose - Point of Care 89 mg/dl (70-99)
--- NOTE | 2024-08-21 17:58 | PTCARENOTE ---
Pt more oriented this afternoon. Blood sugar low on evening check. recoverd with juice. aware. Downgraded to tele
[2024-08-21 20:07] LABS: Glucose - Point of Care 164 mg/dl (70-99)
[2024-08-21 22:26] LABS: Glucose - Point of Care 152 mg/dl (70-99)
--- NOTE | 2024-08-21 23:22 | PTCARENOTE ---
assumed care of patient. pt is AAOX3, [place], a little forgetful at times. bed alarm on. 92% RA. right colostomy intact, bag changed for nightshift by patient. PW in place per patient request. no c/o pain. care ongoing.
[2024-08-22] VITALS (10 sets, daily range): BP systolic 131–169; BP diastolic 57–94; BMI 17.3
[2024-08-22 04:08] LABS: Glucose - Point of Care 152 mg/dl (70-99)
[2024-08-22 04:53] LABS: Blood Urea Nitrogen 55 mg/dl (7-17); Calcium 9.1 mg/dl (8.4-10.2); Carbon Dioxide 33 mmol/L (22-30); Chloride 91 mmol/L (98-107); Estimated Creatinine Clearance 17 ml/min; Glucose 143 mg/dl (70-99); Potassium 3.6 mmol/L (3.5-5.1); Sodium 135 mmol/L (135-145); eGFR 31.61
--- NOTE | 2024-08-22 06:34 | PTCARENOTE ---
pt's colostomy was changed x2 by patient with own supplies from home.
[2024-08-22] MEDS: NORVASC 10 MG PO (08:40)
[2024-08-22] MEDS: PROTONIX 40 MG PO (08:40)
[2024-08-22] MEDS: ASPIR LOW (ENTERIC COATED) 81 MG PO (08:40)
[2024-08-22] MEDS: HEPARIN 5000 UNITS SC ×2 (08:40→16:21)
[2024-08-22] MEDS: COREG 6.25 MG PO ×2 (08:40→20:31)
[2024-08-22] MEDS: TEGRETOL PO (08:45)
--- NOTE | 2024-08-22 09:52 | W.PN.CARDCBS ---
Today's Communication / Plan
-
Hold Lasix and follow creatinine
Add hydralazine for tighter blood pressure control
Impression / Plan
-
Primary pocket operator: Dr. Odom
Assessment:
Change in mental status 08/21/2024
Presentation with SOB
Acute on chronic HFpEF
HTN emergency
Recovered CM EF 35% by echo 03/28/17
CAD with h/o NSTEMI and RCA PCI 04/2016
H/o BMS to RCA 2008
H/o anterior [place] s/p BMS to LAD, RCA 2006
Interstitial fibrosis
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
AAA
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
Hx L radius s/p ORIF, L prox humerus, L pelvic fracture 2013
Left lung nodule
RBBB
HTN
HLD
NIDDM
H/o seizure disorder
H/o urinary retention
Multiple medication allergies/intolerances/noncompliance
Echo 04/2019: EF 60-65%, mild MR, aortic sclerosis
Echocardiogram 08/20/2024: Ejection fraction 50 to 55%, mild to moderate MR, mild AI, pleural effusion, sinus of Valsalva measuring 4.0 cm with mildly dilated aortic root
Plan:
Appears improved from an oxygenation standpoint and remains on room air
Will hold IV Lasix with rising creatinine, now 1.6 - likely overdiuresis
Echocardiogram stable
Remains hypertensive and Norvasc was added on 08/20
Add hydralazine today and monitor BP going forward
Progress Note - Oracle Database Architect
Subjective
Date of Service: August 22, 2024
NAOE. Resting comfortably in IMU. Tells me her breathing is improved.
Objective
Labs:
08/19/24 11:42
08/22/24 03:57
Labs
Hgb 15.8 g/dL (12.0-16.0) 08/19/24 11:42
Hct 47.1 % (37.0-47.0) H 08/19/24 11:42
Plt Count 159 10^3/uL (130-400) 08/19/24 11:42
Sodium 135 mmol/L (135-145) 08/22/24 03:57
Potassium 3.6 mmol/L (3.5-5.1) 08/22/24 03:57
BUN 55 mg/dl (7-17) H 08/22/24 03:57
Creatinine 1.6 mg/dL (0.6-1.0) H 08/22/24 03:57
Glucose 143 mg/dl (70-99) H 08/22/24 03:57
Troponins
08/19/24 08/19/24
11:42 14:08
Troponin I < 0.012 < 0.012
Vital Signs and I&O:
Vital Signs
Temp Pulse Resp BP Pulse Ox
97.9 F 72 18 162/93 92
08/22/24 03:47 08/22/24 08:00 08/22/24 08:00 08/22/24 08:00 08/21/24 20:34
Vital Signs
Temp Pulse Resp BP Pulse Ox
97.9 F 72 18 162/93 92
08/22/24 03:47 08/22/24 08:00 08/22/24 08:00 08/22/24 08:00 08/21/24 20:34
Intake & Output
08/20/24 08/21/24 08/22/24 08/23/24
06:59 06:59 06:59 06:59
Intake Total 240 / 240
Output Total 1000 / 1000 400 / 400
Balance -760 / -760 -400 / -400
Physical Exam
Physical Exam
Gen: NAD, AA, frail-appearing
HEENT: NC/AT, sclera anicteric
Neck: No JVD
CV: RRR, NL s1/s2
Lungs: Mild crackles throughout, on room air
Abd: S/ND
Ext: No LE edema
Skin: Warm, dry
Neuro: Non-focal
[2024-08-22] MEDS: NON-FORMULARY ITEM 1 UNIT PO (09:54)
[2024-08-22] MEDS: NOVOLOG FLEXPEN-LOW RESISTANCE 3 UNITS SC (09:54)
[2024-08-22 10:04] LABS: Glucose - Point of Care 275 mg/dl (70-99)
--- NOTE | 2024-08-22 10:56 | CM ---
Patient with Hx colostomy with Dx Hypertensive Emergency in setting of Acute Heart Failure. Room air. Receiving IV Lasix. PT/OT recommend skilled rehab.
Noting [facility] made d/c plan with daughter on 08/21 for home with [facility].
Spoke with patient re; SNF for rehab vs home with HH. Patient states she prefers to go home and is agreeable to [facility].
Plan home with [facility].
--- NOTE | 2024-08-22 11:32 | W.PN.HOSP.TC ---
Today's Communication/Plan
-
Continue to trend creatinine
Hold Lasix
Hydralazine added
OOB/PT
Assessment / Plan
Assessment / Plan
General: Conversant and cachetic
HEENT: Moist mucous membranes and Oxygen
Respiratory: cta bl
Cardiac: S1/S2 and Regular Rhythm
GI: Soft, Non Tender and Ostomy
Rectal: Deferred by Provider
Musculoskeletal: No Clubbing, No Cyanosis and No Edema
Skin: Warm and Dry
Neuro: Awake, Alert, Oriented and Nonfocal/grossly intact
Psych: Calm
Hypertensive Emergency in setting of Acute Heart Failure
-Give Labetalol 10mg IV Now
- nitroglycerin gtt off
-Continue with carvedilol. Norvasc added and dose increased to 10 mg. Hydralazine added and can uptitrate if needed
Acute on Chronic HFpEF
Acute hypoxic respiratory insufficiency resolved
-Status post aggressive diuresis on admission.
-Echo with EF of 50 to 55%. Diastolic function indeterminate. Mild to moderate mitral regurgitation. Mild aortic regurgitation. Pleural effusion present.
-Monitor Is&Os and Daily Weights
-Cardiology following
Toxic metabolic encephalopathy likely secondary hypertension encephalopathy versus delirium
-CT head was checked and found to be negative.
-Mentation seems to be improving. Avoid any benzos or narcotics if possible.
-Continue to be oriented.
-Encourage sleep at bedtime. Check tegretrol level
ASCVD (CAD s/p cardiac stent, PAD s/p AAA repair, fem-fem bypass and RLE bypass)
-Continue aspirin
Diabetes Mellitus, Type II
-Patient is not currently on medications
-Check HgbA1c at 6.7
-Monitor sugars and continue coverage insulin
DANA on CKD Stage III
-Possibly overdiuresis and will hold further IV diuretics.
Seizure Disorder
-Continue Tegretol.
-Check level in am.
Hyperthyroidism
-Patient no longer on methimazole
-Thyroid function results with subclinical hyperthyroidism
-repeat testing 5-6 weeks
Hyperlipidemia
-Patient maintained on Repatha as outpatient
Severe protein caloric malnutrition of chronic illness
Nutrition following
DVT proph: SC Heparin
Code Status: Full Code
PT/OT
Dispo-home [facility] on discharge.
Anticipated Discharge: 24 - 48 hours
Subjective/Interval History
-
Date of Service: August 22, 2024
states she is feeling better
on room air
not confused
Objective Data
-
Labs:
Laboratory Results
08/22/24
03:57
Sodium 135
Potassium 3.6
Chloride 91 L
Carbon Dioxide 33 H
BUN 55 H
Creatinine 1.6 H
Glucose 143 H
Calcium 9.1
Vital Signs:
Vital Signs
Temp Pulse Resp BP Pulse Ox
97.9 F 72 18 162/93 94
08/22/24 03:47 08/22/24 08:00 08/22/24 08:00 08/22/24 08:00 08/22/24 08:00
I&O
08/21/24 08/22/24 08/23/24
06:59 06:59 06:59
Output Total 400 / 400
Balance -400 / -400
Data Reviewed
-
Total Time Spent with Patient (in minutes): 55
--- NOTE | 2024-08-22 11:37 | PTCARENOTE ---
Received pt from IMU via stretcher. Stretcher placed next to bed, pt scooted over with assist x1. medical coding specialist placed. AAOx3. Assessed and oriented to room. No complaints of pain. Pt verbalized understanding of call lane. Call lane within close
reach.
[2024-08-22] MEDS: APRESOLINE 25 MG PO ×3 (11:51→22:15)
[2024-08-22 11:57] LABS: Glucose - Point of Care 172 mg/dl (70-99)
--- NOTE | 2024-08-22 12:17 | PTCARENOTE ---
Updated Rosalba (daughter on room change).
[2024-08-22] MEDS: NOVOLOG FLEXPEN-LOW RESISTANCE 1 UNITS SC (13:21)
[2024-08-22 16:47] LABS: Glucose - Point of Care 117 mg/dl (70-99)
[2024-08-22] MEDS: NOVOLOG FLEXPEN-LOW RESISTANCE SC (17:13)
[2024-08-22 21:44] LABS: Glucose - Point of Care 109 mg/dl (70-99)
[2024-08-23] VITALS (9 sets, daily range): BP systolic 130–177; BP diastolic 51–77; PULSE 69; O2SAT 98; BMI 17.1
[2024-08-23] MEDS: HEPARIN 5000 UNITS SC ×3 (00:25→15:37)
[2024-08-23 07:53] LABS: Glucose - Point of Care 142 mg/dl (70-99)
[2024-08-23 08:06] LABS: % Basophils 0.4 % (0-2); % Eosinophils 7.3 % (0-6); % Immature Granulocytes 0.2 % (0-0.5); % Lymphocytes 24.1 % (20.5-51.1); % Monocytes 9.9 % (1.7-9.3); % Neutrophils 58.1 % (42.2-75.2); Absolute Eosinophils 0.6 10^3/uL (0-0.7); Absolute Monocytes 0.8 10^3/uL (0.1-0.6); Absolute Neutrophils 4.9 10^3/uL (1.4-6.5); Hematocrit 44.1 % (37.0-47.0); Hemoglobin 14.7 g/dL (12.0-16.0); Mean Corp Hgb Conc. 33.3 g/dL (33.0-37.0); Mean Corpuscular Hgb 33.4 pg (27.0-31.0); Mean Corpuscular Volume 100.2 fL (81.0-99.0); Mean Platelet Volume 11.8 fL (7.4-10.4); Nucleated Red Blood Cells % 0 %; Platelet Count 177 10^3/uL (130-400); Red Cell Dist. Width 12.6 % (11.5-14.5); White Blood Cell Count 8.5 10^3/uL (4.8-10.8)
[2024-08-23] MEDS: PROTONIX 40 MG PO (08:18)
[2024-08-23] MEDS: APRESOLINE 25 MG PO ×3 (08:19→21:24)
[2024-08-23] MEDS: ASPIR LOW (ENTERIC COATED) 81 MG PO (08:19)
[2024-08-23] MEDS: NORVASC 10 MG PO (08:20)
[2024-08-23] MEDS: COREG 6.25 MG PO ×2 (08:21→21:24)
[2024-08-23] MEDS: NON-FORMULARY ITEM 1 UNIT PO (08:26)
[2024-08-23] MEDS: NOVOLOG FLEXPEN-LOW RESISTANCE SC ×2 (08:30→17:17)
[2024-08-23 08:47] LABS: Blood Urea Nitrogen 45 mg/dl (7-17); Calcium 9.2 mg/dl (8.4-10.2); Carbon Dioxide 32 mmol/L (22-30); Chloride 96 mmol/L (98-107); Estimated Creatinine Clearance 20 ml/min; Glucose 144 mg/dl (70-99); Sodium 135 mmol/L (135-145); eGFR 40.55
[2024-08-23 09:44] LABS: Tegretol (Carbamazepine) 4.7 ug/ml (4-12)
--- NOTE | 2024-08-23 11:16 | W.PN.HOSP.TC ---
Today's Communication/Plan
-
cont strict bp control
Cards recs
Cr downtrended
HOme vn on discharge if does not want SNF
Assessment / Plan
Assessment / Plan
General: Conversant and cachetic
HEENT: Moist mucous membranes and Oxygen
Respiratory: cta bl
Cardiac: S1/S2 and Regular Rhythm
GI: Soft, Non Tender and Ostomy
Rectal: Deferred by Provider
Musculoskeletal: No Clubbing, No Cyanosis and No Edema
Skin: Warm and Dry
Neuro: Awake, Alert, Oriented and Nonfocal/grossly intact
Psych: Calm
Hypertensive Emergency in setting of Acute Heart Failure
-Give Labetalol 10mg IV Now
- nitroglycerin gtt off
-Continue with carvedilol. Norvasc added and dose increased to 10 mg. Hydralazine added and can uptitrate if needed.
-BP improved to 132/59
Acute on Chronic HFpEF
Acute hypoxic respiratory insufficiency resolved
-Status post aggressive diuresis on admission.
-Echo with EF of 50 to 55%. Diastolic function indeterminate. Mild to moderate mitral regurgitation. Mild aortic regurgitation. Pleural effusion present.
-Monitor Is&Os and Daily Weights
-consider restarting lasix at 20mg daily (at home was TID weekly)
-Cardiology following
Toxic metabolic encephalopathy likely secondary hypertension encephalopathy versus delirium
-CT head was checked and found to be negative.
-Mentation seems to be improving. Avoid any benzos or narcotics if possible.
-Continue to be oriented.
-Encourage sleep at bedtime. Check tegretrol level
ASCVD (CAD s/p cardiac stent, PAD s/p AAA repair, fem-fem bypass and RLE bypass)
-Continue aspirin
Diabetes Mellitus, Type II
-Patient is not currently on medications
-Check HgbA1c at 6.7
-Monitor sugars and continue coverage insulin
DANA on CKD Stage III
-Possibly overdiuresis and will hold further IV diuretics.
-cr downtrended to baseline.
Seizure Disorder
-Continue Tegretol.
-Check level in am and wnl.
Hyperthyroidism
-Patient no longer on methimazole
-Thyroid function results with subclinical hyperthyroidism
-repeat testing 5-6 weeks
Hyperlipidemia
-Patient maintained on Repatha as outpatient
Severe protein caloric malnutrition of chronic illness
Nutrition following
DVT proph: SC Heparin
Code Status: Full Code
PT/OT -SNF. Patient prefers Home VN. CM following.
Dispo-home VN on discharge.
Anticipated Discharge: Within 24 hours
Subjective/Interval History
-
Date of Service: August 23, 2024
on room air
no chest pain or sob
Objective Data
-
Labs:
Laboratory Results
08/23/24
07:37
WBC 8.5
Hgb 14.7
Hct 44.1
Plt Count 177
Sodium 135
Potassium 4.0
Chloride 96 L
Carbon Dioxide 32 H
BUN 45 H
Creatinine 1.3 H
Glucose 144 H
Calcium 9.2
Vital Signs:
Vital Signs
Temp Pulse Resp BP Pulse Ox
98.5 F 70 20 177/77 95
08/23/24 07:40 08/23/24 07:40 08/23/24 07:40 08/23/24 07:40 08/23/24 07:40
I&O
08/22/24 08/23/24 08/24/24
06:59 06:59 06:59
Intake Total 900 / 900
Balance 900 / 900
Data Reviewed
-
Total Time Spent with Patient (in minutes): 55
[2024-08-23] MEDS: TYLENOL 650 MG PO (12:09)
[2024-08-23 12:20] LABS: Glucose - Point of Care 283 mg/dl (70-99)
[2024-08-23] MEDS: NOVOLOG FLEXPEN-LOW RESISTANCE 3 UNITS SC (13:08)
--- NOTE | 2024-08-23 15:32 | W.PN.CARDCBS ---
Addendum entered and electronically signed by Kylee Edwards DO 08/23/24 18:43:
I saw and examined the patient.
The Supervisor [employer]'s note was reviewed and I agree with the note.
Comment: Patient seen and examined. Overall feels better with less shortness of breath. No chest pain or pressure.
Plan:
Acute HF and HTN emergency.
-Volume status is improved and blood pressures are much better controlled
-New to Coreg 6.25 mg BID
-New to hydralazine 25 mg TID
-New to amlodipine 10 mg daily
-Transition to oral Lasix 40 mg daily which is increased from prior outpatient dose
-Cre as high as 1.6 on 08/22/24. Cre improved to 1.3 on 08/23/24.
-Monitor labs
Discharge planning
Cardiology follow-up to be arranged
Will sign off, recall if needed
Original Note:
Today's Communication / Plan
-
Lasix IV stopped, Cre improved will start Lasix 40 mg PO daily
Impression / Plan
-
PCP: Dr. Breanne Mayorga
Primary client insights consultant: Dr. Odom
Impression:
Change in mental status 08/21/24
Presentation with SOB 08/19/24
Acute on chronic HFpEF
HTN emergency
Recovered CM EF 35% by echo 03/28/17
CAD with h/o NSTEMI and RCA PCI 04/2016
H/o BMS to RCA 2008
H/o anterior [place] s/p BMS to LAD, RCA 2006
Interstitial fibrosis
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
AAA
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
Hx L radius s/p ORIF, L prox humerus, L pelvic fracture 2013
Left lung nodule
RBBB
HTN
HLD
NIDDM
H/o seizure disorder
H/o urinary retention
Multiple medication allergies/intolerances/noncompliance
Echo 04/2019: EF 60-65%, mild MR, aortic sclerosis
Echo 08/20/24: Ejection fraction 50 to 55%, mild to moderate MR, mild AI, pleural effusion, sinus of Valsalva measuring 4.0 cm with mildly dilated aortic root
Plan:
-Patient admitted with acute HF and HTN emergency. Nitro gtt started and then labetalol IV. Patient now moved out to .
-New to Coreg 6.25 mg BID
-New to hydralazine 25 mg TID
-New to amlodipine 10 mg daily
-Patient was initially diuresed with Lasix 40 mg IV BID, but Cre increased to 1.6 on 08/22/24 so Lasix held. Patient was taking Lasix 20 mg MWF prior to admission.
-Cre as high as 1.6 on 08/22/24. Cre improved to 1.3 on 08/23/24.
-Weight is down 8 lbs this admission. Dry weight unknown.
-With improved labs will start Lasix 40 mg PO daily
-EF 50-55% by echo
HPI: 84-year-old woman past medical history of heart failure with recovered ejection fraction and hypertension who presents with worsening dyspnea over the last several days found to be hypoxic and hypertensive. Severe range blood pressures in the
emergency department. Chest x-ray with diffuse infiltrates suggestive of pulmonary edema. proBNP severely elevated to 14,000. Patient was treated for acute heart failure/hypertensive emergency with nitro drip and dose of IV Lasix. At the time of
my evaluation blood pressures were still significantly elevated. Patient reportedly did not have significant urine output in response to the Lasix. Also reporting nausea and upset stomach but no pain. No radiation through to the back.
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
Subjective
Date of Service: August 23, 2024
Less SOB
Objective
Labs:
08/23/24 07:37
08/23/24 07:37
Labs
Hgb 14.7 g/dL (12.0-16.0) 08/23/24 07:37
Hct 44.1 % (37.0-47.0) 08/23/24 07:37
Plt Count 177 10^3/uL (130-400) 08/23/24 07:37
Sodium 135 mmol/L (135-145) 08/23/24 07:37
Potassium 4.0 mmol/L (3.5-5.1) 08/23/24 07:37
BUN 45 mg/dl (7-17) H 08/23/24 07:37
Creatinine 1.3 mg/dL (0.6-1.0) H 08/23/24 07:37
Glucose 144 mg/dl (70-99) H 08/23/24 07:37
Vital Signs and I&O:
Vital Signs
Temp Pulse Resp BP Pulse Ox
97.5 F 68 16 132/59 98
08/23/24 11:53 08/23/24 11:53 08/23/24 11:53 08/23/24 11:53 08/23/24 11:53
Vital Signs
Temp Pulse Resp BP Pulse Ox
97.5 F 68 16 132/59 98
08/23/24 11:53 08/23/24 11:53 08/23/24 11:53 08/23/24 11:53 08/23/24 11:53
Intake & Output
08/21/24 08/22/24 08/23/24 08/24/24
06:59 06:59 06:59 06:59
Intake Total 900 / 900
Output Total 400 / 400
Balance -400 / -400 900 / 900
Physical Exam
Physical Exam
Gen: NAD, AA, frail-appearing
HEENT: EOMI
CV: SR on tele
Lungs: RA
Abd: ND
Ext: No LE edema
Skin: Warm, dry
Neuro: Non-focal
[2024-08-23 17:08] LABS: Glucose - Point of Care 98 mg/dl (70-99)
--- NOTE | 2024-08-23 17:16 | PTCARENOTE ---
updated daughter, Rosalba, on current care plan
[2024-08-23 21:51] LABS: Glucose - Point of Care 158 mg/dl (70-99)
[2024-08-23 23:42] LABS: Glucose - Point of Care 119 mg/dl (70-99)
[2024-08-24] MEDS: HEPARIN 5000 UNITS SC ×2 (01:06→08:09)
[2024-08-24 03:23] VITALS: BP 165/70
[2024-08-24 06:07] VITALS: BMI 16.8
[2024-08-24 07:00] VITALS: BP 171/81
[2024-08-24 07:57] LABS: Blood Urea Nitrogen 51 mg/dl (7-17); Calcium 9.3 mg/dl (8.4-10.2); Carbon Dioxide 34 mmol/L (22-30); Chloride 95 mmol/L (98-107); Estimated Creatinine Clearance 18 ml/min; Glucose 176 mg/dl (70-99); Sodium 136 mmol/L (135-145)
[2024-08-24 07:59] LABS: Glucose - Point of Care 170 mg/dl (70-99)
[2024-08-24] MEDS: NOVOLOG FLEXPEN-LOW RESISTANCE 1 UNITS SC ×2 (08:03→11:53)
[2024-08-24] MEDS: APRESOLINE 25 MG PO (08:05)
[2024-08-24] MEDS: ASPIR LOW (ENTERIC COATED) 81 MG PO (08:07)
[2024-08-24] MEDS: NORVASC 10 MG PO (08:07)
[2024-08-24] MEDS: PROTONIX 40 MG PO (08:07)
[2024-08-24] MEDS: COREG 6.25 MG PO (08:08)
[2024-08-24] MEDS: LASIX 40 MG PO (08:08)
[2024-08-24] MEDS: NON-FORMULARY ITEM 1 UNIT PO (08:16)
--- NOTE | 2024-08-24 10:06 | W.PN.HOSP.TC ---
Today's Communication/Plan
-
po lasix
op cards f/u
Assessment / Plan
Assessment / Plan
General: Conversant and cachetic
HEENT: Moist mucous membranes and Oxygen
Respiratory: cta bl
Cardiac: S1/S2 and Regular Rhythm
GI: Soft, Non Tender and Ostomy
Rectal: Deferred by Provider
Musculoskeletal: No Clubbing, No Cyanosis and No Edema
Skin: Warm and Dry
Neuro: Awake, Alert, Oriented and Nonfocal/grossly intact
Psych: Calm
Hypertensive Emergency in setting of Acute Heart Failure
-Give Labetalol 10mg IV Now
- nitroglycerin gtt off
-Continue with carvedilol. Norvasc added and dose increased to 10 mg. Hydralazine added and can uptitrate if needed.
-BP improved to 132/59
Acute on Chronic HFpEF
Acute hypoxic respiratory insufficiency resolved
-Status post aggressive diuresis on admission.
-Echo with EF of 50 to 55%. Diastolic function indeterminate. Mild to moderate mitral regurgitation. Mild aortic regurgitation. Pleural effusion present.
-Monitor Is&Os and Daily Weights
-plan to restart lasix 40mg daily.
-Cardiology following
Toxic metabolic encephalopathy likely secondary hypertension encephalopathy versus delirium
-CT head was checked and found to be negative.
-Mentation seems to be improving. Avoid any benzos or narcotics if possible.
-Continue to be oriented.
-Encourage sleep at bedtime. Check tegretrol level
ASCVD (CAD s/p cardiac stent, PAD s/p AAA repair, fem-fem bypass and RLE bypass)
-Continue aspirin
Diabetes Mellitus, Type II
-Patient is not currently on medications
-Check HgbA1c at 6.7
-Monitor sugars and continue coverage insulin
DANA on CKD Stage III
-Possibly overdiuresis and will hold further IV diuretics.
-cr downtrended
Seizure Disorder
-Continue Tegretol.
-Check level in am and wnl.
Hyperthyroidism
-Patient no longer on methimazole
-Thyroid function results with subclinical hyperthyroidism
-repeat testing 5-6 weeks
Hyperlipidemia
-Patient maintained on Repatha as outpatient
Severe protein caloric malnutrition of chronic illness
Nutrition following
DVT proph: SC Heparin
Code Status: Full Code
PT/OT -SNF. Patient prefers Home VN. CM following.
Dispo-home VN on discharge.
More than 30 minutes spent in discharge including
Final examination of the patient
Summarizing hospital stay
Instructions for continuing care to all relevant caregivers
Preparation of discharge records, prescriptions, and referral forms
Total time spent (in minutes): 52
Anticipated Discharge: Today
Subjective/Interval History
-
Date of Service: August 24, 2024
denies chest pain or sob
resting in bed comfortably
Objective Data
-
Labs:
Laboratory Results
08/24/24
07:13
Sodium 136
Potassium 4.0
Chloride 95 L
Carbon Dioxide 34 H
BUN 51 H
Creatinine 1.4 H
Glucose 176 H
Calcium 9.3
Vital Signs:
Vital Signs
Temp Pulse Resp BP Pulse Ox
98.4 F 75 16 171/81 98
08/24/24 07:00 08/24/24 08:05 08/24/24 07:00 08/24/24 08:05 08/24/24 07:00
I&O
08/23/24 08/24/24 08/25/24
06:59 06:59 06:59
Intake Total 900 / 900 780 / 780
Balance 900 / 900 780 / 780
--- NOTE | 2024-08-24 10:07 | W.DCSUMMARY ---
Discharge Summary
Discharge Data
Date of Admission: 08/19/24
Date of Discharge: 08/24/24
-
Pending Results: No
Hospital Course
84-year female past medical history of chronic HFpEF, CAD status post stent, PAD status post repair, femorofemoral bypass and right lower extremity bypass, diabetes mellitus, CKD stage III, seizure disorder, hypothyroidism, hyperlipidemia who is
presenting from home with shortness of breath. Patient was found to be in hypertensive emergency. Patient was started on a nitroglycerin drip. Patient was also with flash pulmonary edema and placed on oxygenation. Patient was weaned off
nitroglycerin. Carvedilol was continued. Patient was started on Norvasc and hydralazine. Patient was eval by cardiology. Patient also received IV Lasix. Patient with significant urinary output. Patient was weaned off oxygen. Patient had
episode of confusion. CT head was checked and found to be negative. Patient mentation returned to baseline. Patient without any significant ostomy output. Patient blood pressure started to stabilize. Patient with bump in creatinine IV diuresis
was stopped. Creatinine plateaued. Patient will be started on Lasix 40 mg daily. Patient will follow-up outpatient with cardiology. Patient was eval by physical and Occupational Therapy. Patient wants to go home with VN.
Discharge Plan
-
Patient Disposition: Home with Home Care
Discharge Diagnosis/Procedures: Hypertensive Emergency in setting of Acute Heart Failure
Acute on Chronic HFpEF
Acute hypoxic respiratory insufficiency
Toxic metabolic encephalopathy likely secondary hypertension encephalopathy versus delirium
DANA on CKD Stage III
Condition: Fair
Diet: 2 Gram Sodium and Restrict fluids to 48 oz
Activity: With assistance and As tolerated
Driving Restrictions: As prior to admission
Blood Work: BMP in 1 week via primary doctor
Repeat Thyroid function testing in 4-6 weeks
Other Services: VN
Specialty Instructions: Weigh Daily- Call MD for wt gain/loss 3 lbs overnight/5 lbs in 1 week
Instructions: *[facility] Heart Failure Instructions
Referrals:
Breanne Mayorga DO [Family Provider] - in less than 1 week
Pooja Laughlin PA-C [Specified Professional Personl] - 09/05/24 10:20 am (You have a cardiology follow-up appointment with Dr. Odom's physician assistant shift supervisor, Pooja. Please call with questions)
Prescriptions:
New
furosemide 40 mg Tablet
40 mg PO DAILY 30 Days Qty: 30 0RF
hydralazine 25 mg Tablet
25 mg PO TID 30 Days Qty: 90 0RF
amlodipine [Norvasc] 10 mg tablet
10 mg PO DAILY Qty: 30 0RF
Continued
aspirin 81 MG tablet,delayed release (DR/EC)
81 mg PO DAILY
carbamazepine 200 MG tablet
200 mg PO DAILY
Patient Comments:
01/25/19: Brand Medically Necessary
cholecalciferol (vitamin D3) 1,000 UNITS tablet
1,000 units PO DAILY
ferrous sulfate [FeroSul] 325 MG tablet
325 mg PO WE
carvedilol 6.25 MG tablet
6.25 mg PO BID Qty: 60 0RF
omeprazole magnesium [Prilosec OTC] 20 MG tablet,delayed release (DR/EC)
20 mg PO DAILYPRN PRN (Reason: GERD)
Repatha SureClick 140 mg/mL pen injector
140 mg SC Q2W
TheraTears 0.25 % Drops
1 drp OPHTHALMIC (EYE) BIDPRN PRN (Reason: dry eyes)
Discontinued
furosemide 20 MG tablet
20 mg PO MOWEFR
Discharge Orders:
Discharge Patient (As Directed); Ordered 08/24/24
Ordered By: Leroy Garcia
Discharge Date and Time
Print Language: MONTENEGRIN
--- NOTE | 2024-08-24 11:00 | WOUNDNOTE ---
[facility] RN note: Patient for discharge with VN today. Daughter Rosalba with patient. Patient's R abdominal stoma pink and budded, appliance intact and was changed early this am. Patient had received stoma powder from nursing. She stated correct use of
stoma powder. She denies any skin issues at present. Sacral and heel skin intact. Patient has an air chair cushion and she plans on taking it home. Patient is able to move self and she uses a walker to ambulate. Patient ambulated to recliner chair
with air chair cushion. Will sign off.
[2024-08-24 11:14] VITALS: BP 155/72
[2024-08-24 11:49] LABS: Glucose - Point of Care 182 mg/dl (70-99)
--- NOTE | 2024-08-27 10:46 | W.HF.CON ---
Heart Failure
- LV Function
Left ventricular function study result: LV Ejection fraction >/= 50%
Ejection Fraction Percentage: 50-55
- ARNI
Patient already on ARNI: No
Heart Failure ARNI Not Indicated: LV Ejection Fraction >/= 40%
- ACEI/ARB
Patient already on ACEI/ARB: No
Heart Failure ACEI/ARB Not Indicated: LV Ejection Fraction > 40%
- Beta Monica
Patient already on Evidence Based Beta Monica: Yes
- Mineralocorticord Receptor Antagonist
Patient already on MRA: No
Heart Failure MRA Not Indicated: LV Ejection Fraction > 40%
- SGLT-2 Inhibitor
Patient already on SGLT-2 Inhibitor: No
Heart Failure SGLT-2 Inhibitor Not Indicated: LV Ejection Fraction >40%
- NYHA CHF Classification
NYHA CHF Classification Level: Class III - Symptoms w/ min exertion, interferes w/ nml daily activity
- ACC/AHA Stage
ACC/AHA Stage: Stage C: Symptomatic Heart Failure
== END 2024-08-24 12:57 | disposition home health service (06) | DRG 291 ==
LOC: 3 WEST ACU 14:30
PROVIDERS: Physician Assistant Medical; ADMITTING PHYSICIAN Hospitalist; ATTENDING PHYSICIAN Hospitalist; CONSULT PHYSICIAN Internal Medicine Cardiovascular Disease; EMERGENCY PHYSICIAN Emergency Medicine; FAMILY PHYSICIAN Family Medicine
DX: I13.0 Hypertensive heart and chronic kidney disease with heart failure and stage 1 through stage 4 chronic kidney disease, or unspecified chronic kidney disease (principal); E43 Unspecified severe protein-calorie malnutrition; G92.8 Other toxic encephalopathy; I50.33 Acute on chronic diastolic (congestive) heart failure; I16.1 Hypertensive emergency; I67.4 Hypertensive encephalopathy; N17.9 Acute kidney failure, unspecified; Z68.1 Body mass index [BMI] 19.9 or less, adult; R64 Cachexia; N18.30 Chronic kidney disease, stage 3 unspecified; E11.22 Type 2 diabetes mellitus with diabetic chronic kidney disease; R09.02 Hypoxemia; R06.89 Other abnormalities of breathing; I08.0 Rheumatic disorders of both mitral and aortic valves; R41.0 Disorientation, unspecified; I25.10 Atherosclerotic heart disease of native coronary artery without angina pectoris; Z95.5 Presence of coronary angioplasty implant and graft; G40.909 Epilepsy, unspecified, not intractable, without status epilepticus; E03.9 Hypothyroidism, unspecified; E78.00 Pure hypercholesterolemia, unspecified; Z88.1 Allergy status to other antibiotic agents; Z88.8 Allergy status to other drugs, medicaments and biological substances; Z79.82 Long term (current) use of aspirin; J44.9 Chronic obstructive pulmonary disease, unspecified; F32.A Depression, unspecified; Z96.651 Presence of right artificial knee joint; Z87.891 Personal history of nicotine dependence; Z79.899 Other long term (current) drug therapy; D64.9 Anemia, unspecified; I25.2 Old myocardial infarction; I45.10 Unspecified right bundle-branch block; Z86.73 Personal history of transient ischemic attack (TIA), and cerebral infarction without residual deficits; J84.10 Pulmonary fibrosis, unspecified; K21.9 Gastro-esophageal reflux disease without esophagitis; Z90.49 Acquired absence of other specified parts of digestive tract
CPT/HCPCS: 36600; 70450; 71046; 80048; 80076; 80156; 82805; 82962; 83036; 83735; 83880; 84132; 84439; 84443; 84484; 85025; 93005; 93306; 96374; 96375; 97116; 97163; 97167; 97530; 99291

== ENCOUNTER 2024-10-20 23:10 | Inpatient (IN) | payer OTHER, SELFPAY ==
[2024-10-20] VITALS (22 sets, daily range): BP systolic 108–186; BP diastolic 54–105; BMI 18.0; BMI 17.4
--- NOTE | 2024-10-20 19:29 | ED.GENMED ---
History of Present Illness
General
Chief Complaint: Weakness
Source: patient and family
Time Seen by Provider: 10/20/24 19:06
History of Present Illness
History of Present Illness:
This patient is an 84-year-old female who presents to the emergency department after not feeling well for about the last 2 weeks. Daughter who is her showroom manager dates that the home nurse suspected UTI about 2 weeks ago because the patient was
sleeping more than usual and was reporting urinary frequency beyond what would be expected with her Lasix. She had a UA which was consistent with a UTI. She was placed on Keflex but then this was changed to Macrobid based on urine cultures.
Daughter has not noted an improvement in patient's cognition meaning that she seems to be more tired than usual. In addition, patient has a colostomy and is noted to have very loose stools for the last 10 days without blood or mucus. No history of
fever, chills, chest pain, shortness of breath, cough, sore throat, rhinorrhea, abdominal pain. Tonight, patient was in the bathroom urinating and her daughter noted that she seemed to have a staring episode, was complaining of feeling dizzy and
weak. She assisted her to the chair and checked her blood pressure which was 111/67. She noted that her pulse ox was abnormal which prompted her to call EMS. No seizure-like activity noted, no actual syncope or trauma/fall. No facial droop,
change in speech, focal weakness or other neurological abnormalities noted. Patient's pulse ox was normal yesterday. Patient denies orthopnea, PND, or dyspnea. She has daily weights done and has not had an increase or change in her weight
recently.
Past History
Past History
ED Past Medical History: CAD, CHF, COPD, GERD, HTN, Hypercholesterolemia, NIDDM, NE and Other (Ulcerative colitis, Pulmonary fibrosis, anemia, UTI, Fx Pelvis, Pyelonephritis)
ED Past Surgical History: Bowel resection (with Ileostomy due to Ulcerative colitis) and Cardiac (04/19/16: Cardiac cath with stent RCA, EF 55-60%.)
Social History
Tobacco: Former smoker
Alcohol: None
Drug: None
Personal:
Living: with family (with daughter)
Employment: Retired
Family History
Family History: Other (Noncontributory)
Phy Exam
Physical Exam
Physical Exam:
GENERAL: Alert , in no apparent distress
EYE: pupils equal and reactive, conjunctive a pink
NECK: Supple, no significant adenopathy.
ENT: o/p clr, mm dry
CARDIAC: Regular rate and rhythm .
LUNGS: Equal breath sounds bilaterally, no acute respiratory distress, bibasilar rales noted, no stridor, no drool, voice clear
ABDOMEN: Soft, without focal tenderness, no r/g, colostomy without specific output at this time
NEUROLOGICAL: Alert and oriented, no focal neuro deficits, naemgb-su-wsad normal, cranial nerves II through XII intact, motor 5 out of 5, sensory intact
SKIN: Warm and dry, skin intact.
MUSCULOSKELETAL: No edema, well perfused.
PSYCH: Normal and appropriate interaction.
Course
Orders/Labs/Results
Orders:
Orders
10/20/24 19:03
EKG [Electrocardiogram (*1)] Urgent
Reason for Study: Fatigue / Weakness
10/20/24 19:04
EKG- Treatment ONCE
CR Chest - 2 Views Urgent
Comment:
Reason For Exam: hypoxia
10/20/24 19:13
CBC/With Diff [Complete Blood Count/With Diff] Urgent
CMP [Comprehensive Metabolic Panel] Urgent
Pro-BNP [NT-proBNP] Urgent
Troponin I Urgent
Comment: ADD ON
10/20/24 19:22
D-Dimer Urgent
10/20/24 19:38
C DIFF [C difficile Antigen & Toxins] Urgent
RICHAR Source: Feces/Stool
Specimen Description:
Date Specimen was Collected: 10/21/24
Time Specimen was Collected: 11:11
10/20/24 19:39
CT Head W/o Iv Contrast Urgent
Comment:
Reason For Exam: near syncope
10/20/24 19:53
Add On- LAB Urgent
Tests Added?: troponin
10/20/24 20:29
Furosemide [Lasix] 40 mg IV NOW STA
Nitroglycerin Sublingual [Nitrostat (Sublingual)] 0.4 mg SL NOW STA
10/20/24 21:04
Urinalysis Reflex To Culture Urgent
Date Specimen was Collected: 10/20/24
Time Specimen was Collected: 21:03
Urine Microscopic Reflex Cult Urgent
10/20/24 21:47
Vancomycin 1 Gram/200 ml [Vancocin] 1 gram in 200 ml IV NOW
10/20/24 21:48
Aztreonam [Azactam] 2,000 mg IV NOW STA
10/20/24 22:11
Sterile Water [Sterile Water For Injection] 10 ml .ROUTE .[facility]
10/20/24 22:18
Lactic Acid Q4H
Comment: CANCEL 2nd LACTIC ACID IF 1st LACTIC ACID IS LESS THAN 2
Blood Culture Q30M
RICHAR Source: Blood/Venous
Specimen Description:
10/20/24 22:21
Blood Culture Q30M
RICHAR Source: Blood/Venous
Specimen Description:
10/20/24 22:52
Admit/Transfer Patient As Directed
Co-Sign Provider:
Level of Care: Inpatient admission
Assign to:: Telemetry
Physician / Group: hospitalist
Diagnosis: congestive heart failure
Reason for Telemetry: Subacute Heart Failure
Date to Stop Telemetry: 10/22/24
Time to Stop Telemetry: 11:00
Reason for Hospitalization: hypoxia
Expected length of stay greater than two midnights?: Yes
ELOS- Estimated Length of Stay in days: 2
I certify the patient meets the requirements for IP care: Yes
PRN Pain Medication Management As Directed
May give lesser potent ordered pain med per pt: Yes
preference::
Protocol:: Medication orders for pain may be administered in a
manner that supports deferring to patient preference
when the pt is:
- Requesting an ordered lesser potent pain medication.
Least to most potent pain medications are defined
as: acetaminophen < NSAID < tramadol < opioids
(morphine, oxycodone, hydromorphone).
- Requesting a lesser dose of the same medication IF
ORDERED.
- Requesting a less intrusive route of administration
if both routes are prescribed by the provider (PO <
IV).
10/20/24 22:54
Code Status As Directed
Resuscitation Status: Full Code
10/20/24 23:01
Nitroglycerin Ointment [Nitro-Bid] 1 inch TOPICAL NOW STA
10/20/24 23:07
US Periph Venous LOWER Ext Ben Stat
Comment:
Reason For Exam: d-dimer elevated, eval DVT
10/20/24 23:08
Nitroglycerin Ointment [Nitro-Bid] 0.5 inch TOPICAL NOW STA
10/20/24 23:24
COVID-19 Antigen Stat
Source: Nasal Swab
Influenza A+B Rapid Molecular Stat
RICHAR Source: Nasal Swab
Specimen Description:
MRSA Screen Routine
RICHAR Source: Nose
Specimen Description:
10/21/24 00:47
Acetaminophen [Tylenol] 650 mg PO Q6HPRN PRN
Carboxymethylcellulose [Refresh Celluvisc Gel] 1 drops BOTH EYES BIDPRN PRN
Heparin 5,000 units SC Q8
Pantoprazole [Protonix] 40 mg PO DAILYPRN PRN
10/21/24 00:47
CARDIOLOGY CONSULT Routine
Consulting Provider: Kaylynn Parra
Was physician already notified: Yes
HF DIETARY CONSULT Routine
HF EDUCATOR CONSULT Routine
Comment:
Activity As Directed
Activity Level: With Assistance
Intake/ Output As Directed
Frequency: Per unit guidelines
Patient Education As Directed
Type: CHF folder
Comment: give on admission. Document in Interdisciplinary Education record
Sleep Apnea Assessment by RN As Directed
Comment:
Physician Instructions:
Vital Signs As Directed
Frequency: Other
Additional Instructions:: Q12 or per unit guidelines if more frequent.
Weight As Directed
Frequency: Daily
Type of Scale: Standing Scale
Comment: Daily morning weight. If unable to stand, use balanced bed scale.
Weight As Directed
Frequency: Once
Type of Scale: Standing Scale
Comment: Upon Admission. If unable to stand, use balanced bed scale.
Pulse Ox/cont/shift [RESP] Routine
Quantity: 1
Special Instructions: Daily pulse oximetry at rest. If greater than 92% at rest also obtain pulse oximetry
while ambulating as tolerated.
DX Deep Vein Thrombosis Video Routine
10/21/24 06:44
Basic Metabolic Panel IN AM
Complete Blood Count/No Diff IN AM
Magnesium IN AM
Procalcitonin IN AM
PCT Algorithmm Indication: Respiratory
TSH Reflex To Free T4 IN AM
Troponin I IN AM
Comment: at admission & every 6 hours x 2 (3 total), ECG to be done with each level
10/21/24 08:00
Amlodipine [Norvasc] 10 mg PO DAILY
Aspirin Low Dose EC [Aspir Low (Enteric Coated)] 81 mg PO DAILY
Carbamazepine [Tegretol] 200 mg PO DAILY
Carvedilol [Coreg] 6.25 mg PO BID
Doxycycline Hyclate [Vibramycin] 100 mg 0.9% Sodium Chloride 250 ml [Nss] 250 ml IV Q12
Furosemide [Lasix] 40 mg IV DAILY
HydrALAZINE [Apresoline] 25 mg PO TID
10/21/24 10:00
Aztreonam [Azactam] 1,000 mg IV Q12H
10/22/24 06:37
Basic Metabolic Panel IN AM
10/22/24 11:00
DC Protocol for Telemetry ONCE
10/23/24 07:19
Basic Metabolic Panel IN AM
Abnormal Lab Results
10/20/24 10/20/24 10/20/24
19:13 19:22 21:04
WBC 19.8 H 10^3/uL
(4.8-10.8)
RBC 4.17 L 10^6/uL
(4.20-5.40)
MCH 33.3 H pg
(27.0-31.0)
MPV 11.5 H fL
(7.4-10.4)
Abs Immat Gran (auto) 0.1 H 10^3/uL
(0-0.05)
Absolute Neuts (auto) 16.3 H 10^3/uL
(1.4-6.5)
Absolute Lymphs (auto) 0.5 L 10^3/uL
(1.2-3.4)
Absolute Monos (auto) 1.5 H 10^3/uL
(0.1-0.6)
Absolute Eos (auto) 1.5 H 10^3/uL
(0-0.7)
Neutrophils % 82.1 H %
(42.2-75.2)
Lymphocytes % 2.3 L %
(20.5-51.1)
Eosinophils % 7.6 H %
(0-6)
D-Dimer 9.31 H ug/mlFEU
(0.00-0.50)
Sodium 134 L mmol/L
(135-145)
Chloride 94 L mmol/L
(98-107)
BUN 45 H mg/dl
(7-17)
Creatinine 1.5 H mg/dL
(0.6-1.0)
Glucose 287 H mg/dl
(70-99)
Alkaline Phosphatase 134 H U/L
(38-126)
Ur Occult Blood Reflex 1+ A
(Negative)
Urine Bacteria (Reflex) Few A
(Negative)
Urine Glucose 2+ A
(Negative)
Urine Albumin (Reflex) 3+ A
(Neg - Trace)
10/20/24 19:13
10/20/24 19:13
Vital Signs
Initial and Last Documented VS:
Initial Vital Signs
Temp Pulse Resp BP Pulse Ox
98.6 F 97 20 186/105 95
10/20/24 18:57 10/20/24 18:57 10/20/24 18:57 10/20/24 18:57 10/20/24 18:57
Last Documented Vital Signs
Temp Pulse Resp BP Pulse Ox
97.9 F 73 19 148/66 96
10/23/24 15:00 10/23/24 15:00 10/23/24 15:00 10/23/24 15:00 10/23/24 15:00
*Critical Care Note
Total Time (30-74mins, 75-104mins- exclusive of procedures): Not Applicable
Update Note
Update Note:
Patient presents to the Emergency Department with fatigue, dizziness
Number and Complexity of Problems Addressed at the Encounter
� Chronic conditions affecting care:
� Acute Exacerbation and/or Progression of Chronic Illness:
� Differential Diagnosis includes: But not limited to UTI, urosepsis, CHF exacerbation, PE, ACS, dehydration, electrolyte disturbance, etc. etc.
Amount and/or Complexity of Data to be Reviewed and Analyzed
� I performed an independent evaluation of and my interpretation is:
EKG: Read by me, normal sinus rhythm with PAC, right bundle branch block, no acute ischemia
CT:No acute intracranial abnormalities.
Small old lacunar infarct again seen in the posterior limb of the right internal capsule/thalamus.
Findings again seen compatible with diffuse cortical atrophy with nonspecific white matter changes as described above.
Xrays: Chest x-ray suggestive of pulmonary edema with small effusions
Laboratory Studies: White blood cell count elevation with left shift CKD noted at baseline, elevated BNP at 6170, compared to August 19 that [address].
Other:
� Review of other/old records reveals: Patient was admitted in August for heart failure and hypertensive urgency, placed on a nitro drip, Lasix, etc.
Her weight at that time was measured at 39 kg� It is now 43 kg
� Clinical information was obtained by an independent historian: Daughter who is at bedside
� Prescriptions/Medications Considered but not given:
� Further testing considered but not performed:
Risk of Complications and/or Morbidity or Mortality of Patient Management
� Social determinants of health affecting care:
� Discussion with other providers (PCP, Hospitalists, Consultants, etc):
� Escalation of care including admission/observation vs risk of discharge considered: Given new hypoxia, bibasilar Rales, weight gain of approximately 4 kg, elevated BNP, and suggestive chest x-ray suspect patient has congestive
heart failure exacerbation. Awaiting UA. Lasix and nitro ordered, close monitoring of blood pressure.
Pt remains stable, case d/w hosptialist via tt for admission. suspect hf exac, however also sepis, unclear source...?pna difficult to note via cxr...pt does not report cough/st/rhinorhea, etc. No meningismus.
ED Attending Note
-
Portions of this chart may have been created with voice recognition software.� Occasional wrong word or��sound alike� substitutions may have occurred due to the inherent limitations of voice recognition software.
Discharge Plan
Departure
Patient Disposition: Admit
Date of Disposition: 10/20/24
Time of Disposition: 22:49
Presentation/result/management discussed w/ accepting MD/DO: Hospitalist
Condition: Fair
Discharge Problem:
Heart failure
Interventions
Interventions:
*Risk Screen - Suicide Last Done: 10/20/24 18:59
*General Assessment Last Done: 10/20/24 18:59
*Neglect/Abuse Screening Last Done: 10/20/24 18:59
*ED- Fall Risk Assessment Last Done: 10/20/24 18:59
*ED COVID-19 Vaccine History Last Done: 10/20/24 18:59
*Nursing Disposition Last Done: 10/21/24 00:43
ED- Cardiac Assessment Last Done: 10/20/24 19:16
ED- Neurological Assessment Last Done: 10/20/24 19:17
ED- Pulmonary Assessment Last Done: 10/20/24 19:18
Discharge Date and Time
Discharge Date/Time: 10/21/24 00:44
[2024-10-20 19:48] LABS: ALT (SGPT) 18 U/L (0-35); AST (SGOT) 28 U/L (14-36); Albumin 3.9 g/dl (3.5-5.0); Alkaline Phosphatase 134 U/L (38-126); Blood Urea Nitrogen 45 mg/dl (7-17); Carbon Dioxide 30 mmol/L (22-30); Chloride 94 mmol/L (98-107); Estimated Creatinine Clearance 19 ml/min; Glucose 287 mg/dl (70-99); Potassium 3.5 mmol/L (3.5-5.1); Sodium 134 mmol/L (135-145); Total Bilirubin 0.7 mg/dl (0.2-1.3); Total Protein 6.7 g/dl (6.3-8.2); eGFR 34.15
[2024-10-20 19:53] LABS: % Basophils 0.2 % (0-2); % Eosinophils 7.6 % (0-6); % Immature Granulocytes 0.4 % (0-0.5); % Lymphocytes 2.3 % (20.5-51.1); % Monocytes 7.4 % (1.7-9.3); % Neutrophils 82.1 % (42.2-75.2); Absolute Eosinophils 1.5 10^3/uL (0-0.7); Absolute Immature Granulocytes 0.1 10^3/uL (0-0.05); Absolute Lymphocytes 0.5 10^3/uL (1.2-3.4); Absolute Monocytes 1.5 10^3/uL (0.1-0.6); Absolute Neutrophils 16.3 10^3/uL (1.4-6.5); Hemoglobin 13.9 g/dL (12.0-16.0); Mean Corp Hgb Conc. 33.9 g/dL (33.0-37.0); Mean Corpuscular Hgb 33.3 pg (27.0-31.0); Mean Corpuscular Volume 98.3 fL (81.0-99.0); Mean Platelet Volume 11.5 fL (7.4-10.4); Nucleated Red Blood Cells % 0 %; Platelet Count 162 10^3/uL (130-400); Red Blood Cell Count 4.17 10^6/uL (4.20-5.40); Red Cell Dist. Width 12.2 % (11.5-14.5); White Blood Cell Count 19.8 10^3/uL (4.8-10.8)
[2024-10-20 19:57] LABS: NT-proBNP 6170 pg/ml
[2024-10-20 20:16] LABS: Troponin I 0.014 ng/ml
[2024-10-20 20:45] LABS: D-Dimer 9.31 ug/mlFEU (0.00-0.50)
[2024-10-20] MEDS: LASIX 40 MG IV (20:51)
[2024-10-20] MEDS: NITROSTAT (SUBLINGUAL) 0.4 MG SL (20:55)
[2024-10-20 21:11] LABS: Urine Albumin 3+ (Neg - Trace); Urine Bilirubin Negative (Negative); Urine Character Clear (Clear); Urine Color Yellow; Urine Glucose 2+ (Negative); Urine Ketone Negative (Negative); Urine Leukocyte Negative (Negative); Urine Nitrite Negative (Negative); Urine Occult Blood 1+ (Negative); Urine Urobilinogen Negative (Neg - 1+)
[2024-10-20 21:20] LABS: Urine Bacteria Few (Negative); Urine Red Blood Cell 0-2 /HPF (0-2)
[2024-10-20] MEDS: AZACTAM 2000 MG IV (22:30)
--- NOTE | 2024-10-20 22:33 | HPS.HSE ---
Family Physician
-
Family Physician: Breanne Mayorga
Chief Complaint
-
Weakness and hypoxia
History of Present Illness
This is a 84-year-old female with past medical history of CHF with preserved EF, CAD status post stent, history of seizure disorder, hypothyroid, rgn-[id number]-[id number] diabetes, PAD and CKD stage III who presents to the emergency department with
weakness and an episode of hypoxia in the setting of transient presyncopal episode.
Otherwise primary caregiver. She was discharged from the hospital in August after being admitted for CHF exacerbation and placed on 40 mg daily of Lasix. She has maintained a weight of around 90 pounds since then. She has had no peripheral
edema. She apparently has been doing well up until about 2 weeks ago when she developed somnolence and decreased interactiveness. This was thought to be secondary to urinary tract infection in the setting of [facility]. She had a positive UA in the
outpatient setting and she was started on antibiotics. She apparently been on Keflex and now more recently on Macrobid based on sensitivities. The antibiotics did not appear to improve mental status or degree of activity. Patient herself denies
having any flank pain. She currently denies having any urinary symptoms.she denies abdominal pain nausea or vomiting. She denies any shortness of breath. She denies dyspnea on exertion. She denies having any chest pain. She denies any increased
lower extremity edema. She denies palpitations lightheadedness or dizziness. When the antibiotics were initiated the patient did have increased stool output/diarrhea via the ileostomy which seemed petered out.
She woke up today similar to the last few days with some weakness and tiredness but otherwise had no acute symptoms. She was urinating this evening when daughter noted a staring episode and patient complained of feeling dizzy and weak. She checked
her blood pressure and reported that it was lower than usual. She checked her pulse ox and found it to be 86% so called EMS and brought her to the emergency department. Patient only complained of dizziness at that time and denies any syncope.
Denies any seizure-like activity.
She denies any coughing wheezing fevers or chill.
In the emergency department she was afebrile. Initial blood pressure was 186/100, she was 80s on room air currently 95% on 4 L. Respiratory rate was 20. He had a white count of 19.8, hemoglobin and platelets were normal. Electrolytes were normal
except for a bicarb of 30. BUN and creatinine were similar to prior at 48 and 1.5 respectively. UA shows a few bacteria and some WBCs but negative leukocyte esterase and negative nitrites.
ECG shows 4 degree AV block with a rate of 94 and right bundle. The right bundle is new. Troponin was 0.014. BNP was elevated at 6000 (similar to prior).
Chest x-ray shows increased pulmonary vascularity. To me appears to have trace bilateral pleural effusions.
CT of the head shows no acute findings.
D-dimer was elevated at 9.3
Medical History
Past Medical History
Past Medical History: Reports Other
Additional Past Medical History:
ASCVD (CAD, PAD, CVA)
Chronic Heart Failure
Essential Hypertension
Hyperlipidemia
Diabetes Mellitus, Type II
CKD Stage II
COPD
Seizure Disorder
Hyperthyroidism
Depression
Past Surgical History: Reports Other
Additional Past Surgical History:
AAA Endovascular Repair / Fem-Fem Bypass / RLE Endarterectomy
Colectomy with Ileostomy
Right Total Knee Replacement
Left Wrist Surgery ORIF
Social History
Tobacco: Former Smoker (Quit about 20 years ago)
Living: With Family
Family History
Family History: Not pertinent
Allergies / Home Medications
Allergies reflects when Allergies were last updated in [facility].
Home Medications with original date entered in [facility]
Allergy/Medication List:
Allergies
Allergy/AdvReac Type Severity Reaction Status Date / Time
atorvastatin Allergy MUSCLE Verified 08/19/24 10:54
ACHES
ceftriaxone sodium Allergy RED RAISED Verified 08/19/24 10:54
[From Rocephin] HIVES
levofloxacin [From Levaquin] Allergy Rash, Verified 08/19/24 10:54
chest pain
phenytoin Allergy INCREASED Verified 08/19/24 10:54
SEIZURES
Home Medications
furosemide 40 mg Tablet
40 mg PO DAILY 30 Days Qty: 30 0RF
hydralazine 25 mg Tablet
25 mg PO TID 30 Days Qty: 90 0RF
amlodipine [Norvasc] 10 mg tablet
aspirin 81 MG tablet,delayed release (DR/EC)
81 mg PO DAILY
carbamazepine 200 MG tablet
200 mg PO DAILY
Patient Comments:
01/25/19: Brand Medically Necessary
cholecalciferol (vitamin D3) 1,000 UNITS tablet
1,000 units PO DAILY
ferrous sulfate [FeroSul] 325 MG tablet
325 mg PO WE
carvedilol 6.25 MG tablet
6.25 mg PO BID Qty: 60 0RF
omeprazole magnesium [Prilosec OTC] 20 MG tablet,delayed release (DR/EC)
20 mg PO DAILYPRN PRN (Reason: GERD)
Repatha SureClick 140 mg/mL pen injector
140 mg SC Q2W
TheraTears 0.25 % Drops
10 mg PO DAILY Qty: 30 0RF
Review of Systems
-
History Source: Patient and Family
Constitutional: Reports Fatigue and Sleep Disturbance; Denies Fever, Weight Gain, Weight Loss, Night Sweats or Chills
EENT: Reports No Symptoms
Respiratory: Reports Trouble Breathing; Denies Cough
Cardiac: Denies Chest Pain, Diaphoresis, Palpitations or Syncope
Abdomen/GI: Reports No Symptoms
: Reports No Symptoms
Musculoskeletal: Reports No Symptoms
Skin: Reports No Symptoms
Neurological: Reports No Symptoms
Endocrine: Reports No Symptoms
Hematologic/Lymphatic: Reports No Symptoms
Psych: Reports No Symptoms
Physical Exam
Vital Signs
Vital Signs
Temp Pulse Resp BP Pulse Ox
98.6 F 92 24 108/61 95
10/20/24 18:57 10/20/24 21:10 10/20/24 21:10 10/20/24 21:10 10/20/24 21:10
Physical Exam
General: Well Developed, Comfortable, Conversant and Appears Chronically Ill
HEENT: NormoCephalic, Anicteric, Moist mucous membranes, Atraumatic, PERRLA and Oxygen
Respiratory: Crackles and Non Labored Respirations; No Accessory Resp Muscle Use
Cardiac: S1/S2 and Regular Rhythm
Breast: Deferred by me
GI: Soft, Non Tender, Non Distended and Normal Bowel Sounds
Rectal: Deferred by Provider
Genito-urinary: Deferred by me
Musculoskeletal: No Clubbing, No Cyanosis and No Edema
Skin: Warm
Neuro: AO x 3 and Nonfocal/grossly intact
Hematologic/Lymphatic: No Lymphadenopathy
Psych: Calm
Laboratory Results
-
10/20/24 19:13
10/20/24 19:13
Laboratory Results
Total Bilirubin 0.7 mg/dl (0.2-1.3) 10/20/24 19:13
AST 28 U/L (14-36) 10/20/24 19:13
ALT 18 U/L (0-35) 10/20/24 19:13
Alkaline Phosphatase 134 U/L (38-126) H 10/20/24 19:13
Troponin I Cancelled 10/20/24 19:38
Data Reviewed
-
Diagnostic Radiology: Image Personally Visualized and interpreted and Report Reviewed by me
Medical Tests (Nuc Med, Echo, EKG etc): Image Personally Visualized and interpreted
Lab Data: Labs Reviewed by me
Old Records: Reviewed
Impression/Plan
-
IMPRESSION:
84-year-old with past medical history significant for CHF with preserved EF, hypertension, dpa-qhyeqpi-qizwnolmw diabetes, hyperlipidemia, CAD status post stent, peripheral arterial disease, status post colectomy with end ileostomy, CKD 3 and
history of seizure disorder not currently on antiepileptic drug presents to the emergency department with acute episode of hypoxia in the setting of dizziness. Patient appeared to have had fatigue, sleepiness and less interactiveness for about 2
weeks attributable to positive urinalysis and has been on Keflex and Macrobid over the last 10 days. No fevers chills or flank pain. No cough, prior to today patient had no shortness of breath or dyspnea on exertion or chest pain. She had had
normal pulse oximetry readings. However today she had to suddenly developed dizziness, became hypotensive and hypoxic to 86% on room air. Again denied having any chest pain. Denied nausea vomiting or diaphoresis. X-ray shows increased pulmonary
vasculature. On my examination she has crackles up to the mid lungs bilaterally. Consistent with a history she has no peripheral edema. She has had no weight gain. Likewise there is no JVD. She appeared to have improved after a dose of
sublingual nitroglycerin with a drop in blood pressure from 180 systolic to 108 and now back to 150s. ECG is nonischemic. Troponin is negative. BNP is elevated but comparable to prior readings. Leukocytosis with pending lactic acid. This
picture is consistent with flash pulmonary edema without marked total body volume overload. Cannot rule out pneumonia. She is not hypotensive but cannot rule out ongoing UTI as well as condition for leukocytosis. The elevated D-dimer noted.
PLAN:
Hypoxia - suspect flash pulmonary edema but cannot rule out pneumonia.
- admit to telemetry for now
- s/p lasix 40mg iv in ED, moderate total body volume overload, will continue with 40 IV lasix for now
- will apply 1/2 inch nitropaste for now, remove if SBP < 120
- continue her carvedilol and hydralazine
- will check covid/flu and procalcitonin
- abx as below but low evidence for a pneumonia
- check d/dimer for elevated d-dimer
- if hypoxia not improved with diuresis, consider V/Q scan
- cardiology consult
Leukocytosis - Possibly UTI vs PNA. U/A is equivocal but has been on abx for several days. Afebrile here. No abdominal pain and no current urinary symptoms.
- procalcitonin as above
- blood cultures
- urine cultures
- given allergies continue with aztreonam/doxycycline for now
- check mrsa, hold vancomycin
DVT PPX - heparin sq
Code Status - Full Code
[2024-10-20] MEDS: VANCOCIN 200 IV (22:43)
[2024-10-20 22:50] LABS: Lactic Acid 1.5 mmol/L (0.7-2.0)
[2024-10-20] MEDS: NITRO-BID 0.5 INCH TOPICAL (23:27)
[2024-10-21] VITALS (10 sets, daily range): BP systolic 146–179; BP diastolic 55–85; BMI 16.2; BMI 15.8
[2024-10-21] LABS: COVID-19 Antigen Negative (Negative)
[2024-10-21] MEDS: HEPARIN 5000 UNITS SC ×2 (01:47→07:52)
--- NOTE | 2024-10-21 02:53 | PTCARENOTE ---
Received patient from ED at approx 0100. Patient didn't feel comfortable to stand on scale. 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 Currently on 3 L oxygen via nasal cannula. Denies pain. Bed alarm in plugged in. Oriented to room, call lane
within reach.
[2024-10-21 07:20] LABS: Blood Urea Nitrogen 39 mg/dl (7-17); Calcium 9.3 mg/dl (8.4-10.2); Carbon Dioxide 35 mmol/L (22-30); Chloride 94 mmol/L (98-107); Estimated Creatinine Clearance 18 ml/min; Glucose 124 mg/dl (70-99); Sodium 137 mmol/L (135-145); Troponin I 0.027 ng/ml
[2024-10-21 07:25] LABS: Procalcitonin 0.74 ng/ml (0.0-0.25)
[2024-10-21 07:29] LABS: Hematocrit 43.1 % (37.0-47.0); Hemoglobin 14.6 g/dL (12.0-16.0); Mean Corp Hgb Conc. 33.9 g/dL (33.0-37.0); Mean Corpuscular Hgb 33.3 pg (27.0-31.0); Mean Corpuscular Volume 98.2 fL (81.0-99.0); Mean Platelet Volume 11.3 fL (7.4-10.4); Platelet Count 174 10^3/uL (130-400); Red Blood Cell Count 4.39 10^6/uL (4.20-5.40); Red Cell Dist. Width 12.2 % (11.5-14.5); White Blood Cell Count 13.6 10^3/uL (4.8-10.8)
[2024-10-21 07:49] LABS: TSH Reflex To Free T4 0.19 uIU/ml (0.47-4.68)
[2024-10-21] MEDS: COREG 6.25 MG PO ×2 (07:51→21:37)
[2024-10-21] MEDS: ASPIR LOW (ENTERIC COATED) 81 MG PO (07:52)
[2024-10-21] MEDS: TEGRETOL 200 MG PO (07:52)
[2024-10-21] MEDS: NORVASC 10 MG PO (07:52)
[2024-10-21] MEDS: APRESOLINE 25 MG PO (07:52)
[2024-10-21] MEDS: LASIX 40 MG IV (07:52)
[2024-10-21] MEDS: VIBRAMYCIN 260 MG IV ×2 (07:53→21:35)
[2024-10-21 08:19] LABS: Free T4 1.37 ng/dl (0.78-2.19)
[2024-10-21] MEDS: KCL 40 MEQ PO (08:59)
--- NOTE | 2024-10-21 09:33 | CON.CAR ---
Consultation
Consultation Request
Date/Time Consultation Requested: 10/21/24 8:30 AM
Date/Time Consultation Performed: 10/21/24 10:30 AM
Requesting Provider: Dr. Koenig
Performing Provider: Dr Kaylynn Parra
Reason for Consultation: Shortness of breath
Medical History
-
History of Present Illness:
According to records she came to the ER brought by her daughter through EMS with not feeling well for 2 weeks, suspected UTI, sleeping more than usual with urinary frequency on 2 courses of antibiotics. She then had change in cognition feeling more
tired and loose stools with her colostomy bag. She may have also complained of shortness of breath in the setting of noted hypoxemia and feeling weak. As noted there was a question of UTI in the setting of Farxiga. She was started on antibiotics
as an outpatient. As documented on the evening prior to admission she complained to her daughter feeling weak and dizzy and blood pressure was lower than usual and pulse ox was 86% and EMS was called. Initial blood pressure was also elevated at
186/100.
-Initial white blood count 19.8 with left shift hemoglobin normal. Current BUN/creatinine 39/1.4 potassium 3.0. Weight currently 86 pounds was 88 earlier and 94 prior to that this admission if accurate. Discharge weight last admission 86 pounds.
-Troponin 0.014-0.027
-proBNP 6170 (08/19/2024 was 14,500)
-EKG this morning sinus rhythm with right bundle branch block voltage criteria for LVH
-EKG/07/04 sinus rhythm with first-degree AV block. Right bundle branch block. PVCs. Left atrial abnormality.
-Chest x-ray increased pulmonary vascularity with tiny bilateral pleural effusions.
-Head CT scan no acute findings small old lacunar infarct once again seen right internal capsule/thalamus
She has history of significant hypertension with blood pressure not well-controlled currently but recently controlled in the office.
She was recently admitted to the hospital 08/19/2024 with change in mental status, hypertensive urgency and decompensated heart failure with preserved (50 to 55%), previously improved ejection fraction (%).
She has history of coronary artery disease with CT and bare-metal stent to the LAD, RCA in 2006, bare-metal stent to RCA 2008, RCA PCI 04/2016. proBNP 6170 (08/19/2024�23109)
Past Medical History
Past Medical History: CAD, CHF (Heart failure preserved ejection fraction, previously improved), COPD, CVA, HTN, Hypercholesterolemia, NIDDM, Seizures and Other (History of interstitial fibrosis. Ulcerative colitis.AAA)
Past Surgical History: Bowel Resection, Orthopedic (Total knee replacement) and Other (07/30/19- s/p endovascular repair of AAA with aorto uni-iliac endoprosthesis and Rt common iliac artery coil embolization with fem-fem- bypass)
Social History
Tobacco: Non-Smoker
Employment: Retired
Family History
Family History: CAD (Mother)
Allergies / Home Medications
Allergy/AdvReac Type Severity Reaction Status Date / Time
atorvastatin Allergy MUSCLE Verified 08/19/24 10:54
ACHES
ceftriaxone sodium Allergy RED RAISED Verified 08/19/24 10:54
[From Rocephin] HIVES
levofloxacin [From Levaquin] Allergy Rash, Verified 08/19/24 10:54
chest pain
phenytoin Allergy INCREASED Verified 08/19/24 10:54
SEIZURES
�Medication �Instructions �Recorded �Confirmed �Type
aspirin 81 mg tablet,delayed 81 mg PO DAILY Blood Clot 05/27/16 08/23/24 History
release Prevention/Tx
carbamazepine 200 mg tablet 200 mg PO DAILY seizure disorder 05/27/16 08/23/24 History
cholecalciferol (vitamin D3) 25 1,000 units PO DAILY Supplement 01/28/17 08/23/24 History
mcg (1,000 unit) tablet
ferrous sulfate 325 mg (65 mg 325 mg PO WE Supplement 01/25/19 08/23/24 History
iron) tablet (FeroSul)
carvedilol 6.25 mg tablet 6.25 mg PO BID ##60 05/04/19 08/23/24 Rx
omeprazole magnesium 20 mg 20 mg PO DAILYPRN PRN GERD 06/26/19 08/23/24 History
tablet,delayed release (Prilosec
OTC)
evolocumab 140 mg/mL subcutaneous 140 mg SC Q2W High Cholesterol 08/19/24 08/23/24 History
pen injector (Repatha SureClick)
carboxymethylcellulose sodium 0.25 1 drp ophthalmic (eye) BIDPRN PRN 08/23/24 08/23/24 History
% eye drops (TheraTears) dry eyes
amlodipine 10 mg tablet (Norvasc) 10 mg PO DAILY #30 tabs 08/24/24 Rx
furosemide 40 mg tablet 40 mg PO DAILY Fluid 08/24/24 Rx
retention/Swelling 30 days #30 tabs
hydralazine 25 mg tablet 25 mg PO TID 30 days #90 tabs 08/24/24 Rx
Review of Systems
-
History Source: Patient
All other systems: Negative unless noted
Constitutional: Other (Fatigue)
Abdomen/GI: Other (Increased ostomy output)
: Frequency
Physical Exam
Vital Signs
Temp Pulse Resp BP Pulse Ox
98.1 F 83 16 163/85 99
10/21/24 07:10 10/21/24 07:52 10/21/24 07:10 10/21/24 07:52 10/21/24 07:10
Lab Results
10/21/24 06:44
10/21/24 06:44
Troponin I 0.027 ng/ml 10/21/24 06:44
Mfq-J-Fknwwmznznb Pept 6170 pg/ml 10/20/24 19:13
General: Thin frail elderly woman
Heart: Non displaced PMI, RRR, no murmurs, No S3, S4, no rubs.
Lungs: Clear to auscultation bilaterally, no wheeze, rhonchi, rubs bilaterally,
normal expiratory phase.
Extremities: No clubbing, cyanosis or edema bilaterally.
Neuro: Grossly nonfocal, awake, alert and oriented x3.
Impression / Plan
-
PCP: Dr. Breanne Mayorga
Primary natural resource technician: Dr. Odom
Impression:
Change in mental status last admission 08/2024 and decreased mentation also this admission
Per primary service cultures underway possible UTI versus pneumonia
Along with this fatigue and weakness with frequent urination and frequent loose colostomy output
Presentation with SOB this admission 10/20/2024 (initial hypoxemia) with recent admission 08/19/24
Acute on chronic HFpEF
HTN with history of prior hypertensive emergency
Positive D-dimer
Recovered CM EF 25 to 30% (2006) recovered by echo 03/28/17 (50 to 55% 08/2024)
Mild to moderate mitral regurgitation with mildly dilated aorta root last echo
Coronary artery disease
h/o NSTEMI and RCA PCI 04/2016
H/o BMS to RCA 2008
H/o anterior CT s/p BMS to LAD, RCA 2006
RBBB
HTN
HLD
NIDDM
Renal insufficiency
Interstitial fibrosis
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
AAA status post EVAR and femorofemoral bypass
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
Left lung nodule CT scan 2018
H/o seizure disorder
H/o urinary retention
Multiple medication allergies/intolerances/noncompliance
Echo 08/20/24: EF 50 to 55%, mild to moderate MR, mild AI, pleural effusion, sinus of Valsalva measuring 4.0 cm with mildly dilated aortic root
Lexiscan sestamibi stress test April 2019: Small fixed apical septal and apical defects this was soft tissue attenuation versus infarction. Ejection fraction 60%-moderate risk study.
Plan:
She is readmitted with change in mental status in the setting of being treated for UTI with 2 antibiotics as an outpatient and frequent urination along with increased ostomy output with loose stools and cultures negative thus far but initial
increased white count of 19,000. Possible infection, change in mentation and acute on chronic heart failure with preserved/improved ejection fraction. Volume status appears stable after diuresis (1-2 doses of IV Lasix) and down to prior discharge
weight of 86 pounds. Pulse ox is 99% on 3 L.
She has renal insufficiency remained stable but increasing CO2 noted.
Change in mental status
Currently clear and able to answer questions. Cough may have been a combination of infection/heart failure
Heart failure with preserved ejection fraction acute on chronic
proBNP is much better than last admission Previously 14,500 now 6170.
Clinically looks stable. Has diuresed. CO2 is rising.
I have held IV Lasix for now and we will reassess in the morning.
Hypertension continues. Blood pressure was normal at recent office visit.
I have increased hydralazine to 37.5 mg 3 times daily
Follow and caution given advanced age
History of seizure disorder
On seizure precautions
Vascular follows as an outpatient for carotid and aorta/peripheral vascular disease.
Status post EVAR and femorofemoral bypass
UTI
Undergoing treatment given recent UTI as an outpatient
Increased colostomy output
Defer to primary service
Hypokalemia
Primary service repleting
Elevated D-dimer
Defer to primary service but would consider VQ scan or CT scan to rule out PE
Data Reviewed
-
EKG: Tracing Personally Visualized and interpreted
Radiology: Image Personally Visualized and interpreted and Report Reviewed by me
CT Scan: Report Reviewed by me
Ultrasound: Report Reviewed by me
Medical Tests (Nuc Med, Echo etc): Image Personally Visualized and interpreted and Report Reviewed by me
Labs: Labs Reviewed by me
Old Records: Reviewed
[2024-10-21] MEDS: STERILE WATER FOR INJECTION 10 ML IV ×2 (10:27→23:04)
[2024-10-21] MEDS: AZACTAM 1000 MG IV ×2 (10:27→23:03)
--- NOTE | 2024-10-21 11:22 | W.PN.HOSP.TC ---
Addendum entered and electronically signed by Marcelino Thrasher DO 10/21/24 14:10:
Will pursue workup of possible PE considering ongoing hypoxia despite appearing clinically euvolemic, D-dimer value is close to age-adjusted cutoff
- Start empiric anticoagulation with renally dosed weight-based Lovenox
- Follow-up VQ scan
- Check echocardiogram for evidence of right heart strain
- Bilateral lower extremity ultrasound negative for DVT
Original Note:
Today's Communication/Plan
-
Assessment / Plan
Assessment / Plan
General: No Apparent Distress, Comfortable and Conversant
HEENT: NormoCephalic, Moist mucous membranes, nasal cannula in place
Respiratory: Clear and Non Labored Respirations
Cardiac: S1/S2 and Regular Rhythm; No Rub or Gallop
GI: Soft, Non Tender, Non Distended and Normal Bowel Sounds
Musculoskeletal: No Edema, no deformity
Skin: Warm and dry
: NO Glynn
Neuro: Awake, Alert, Nonfocal/grossly intact
Psych: Calm and Intact Judgment/Insight
Ms. Haider is a 84-year-old female with medical history of HFpEF, CAD (stents), seizure disorder, NIDDM, CKD stage III, PAD, colectomy with ileostomy, and hypothyroidism who presented with weakness and a presyncopal episode associated with hypoxia.
Approximately 2 weeks prior to arrival she developed somnolence and was treated for urinary tract infection. Initially she was treated with Keflex and later switched to Macrobid based on sensitivities, however her somnolence did not improve. Just
prior to arrival the patient had an acute mental status change while urinating and reported feeling dizzy and weak. Blood pressure at that point was on the low side and pulse ox was 86% and so she was brought via EMS to the ED. In the ED, she was
initially hypertensive with a BP of 186/100. She was afebrile. She was initially saturating in the mid 80s on room air but recovered to 95% on 4 L via nasal cannula. She had a significant leukocytosis of almost 20,000. Bicarb was 30 and
creatinine was 1.5 which is close to her baseline. Troponins were within normal limits. No evidence of acute ischemia on EKG. UA showed few bacteria and some pyuria. Her procalcitonin was elevated. TSH was low but free T4 was within normal
limits. D-dimer was elevated but within normal limits when age-adjusted. Lower extremity Dopplers negative for DVT. Chest imaging showed pulmonary vascular congestion. She was admitted for further evaluation and management of hypoxia and
pulmonary edema.
Hypoxia:
- Suspect secondary to pulmonary edema in setting of acute exacerbation of diastolic heart failure, alternatively could be due to respiratory infection
- Continue supplemental oxygen and titrate as able
- Diuresing with IV Lasix
- If unable to titrate off of supplemental oxygen then will consider VQ scan, however elevated D-dimer is actually within normal limits when age-adjusted
- Continue antibiotics empirically for possible respiratory infection, started on aztreonam and doxycycline considering allergies, follow-up cultures
Acute on chronic HFpEF:
- Continue diuresis with IV Lasix
- Beta-blockade with carvedilol 6.25 mg p.o. twice daily
- Afterload reduction with amlodipine 10 mg daily and hydralazine 25 mg p.o. 3 times daily
- Echocardiogram pending
- Will follow-up recommendations from cardiology
Hypokalemia:
- Potassium 3.0
- Replete
- Monitor with ongoing diuresis
CKD stage IIIb:-Appears to be at baseline renal function
- Monitor
CAD and PAD:
- Chronic, stable
- Continue aspirin 81 mg daily
- Uses Repatha 140 mg subcu every 2 weeks for hyperlipidemia
Seizure disorder:
- Stable
- Continue home carbamazepine 200 mg p.o. daily
CODE STATUS: Full code
Anticipated Discharge: 24 - 48 hours
Subjective/Interval History
-
Date of Service: October 21, 2024
Patient was seen and examined at bedside this morning. She has been diuresing adequately on IV Lasix. Currently breathing comfortably and saturating properly on 3 L via nasal cannula. She does not use oxygen at home.
Objective Data
-
Labs:
Laboratory Results
10/21/24
06:44
WBC 13.6 H
Hgb 14.6
Hct 43.1
Plt Count 174
Sodium 137
Potassium 3.0 L
Chloride 94 L
Carbon Dioxide 35 H
BUN 39 H
Creatinine 1.4 H
Glucose 124 H
Calcium 9.3
Vital Signs:
Vital Signs
Temp Pulse Resp BP Pulse Ox
98.1 F 83 16 163/85 99
10/21/24 07:10 10/21/24 07:52 10/21/24 07:10 10/21/24 07:52 10/21/24 07:10
Review of Systems
-
History Source: Patient
All other systems: Reviewed and negative
Physical Exam
-
General: No Apparent Distress
[2024-10-21] MEDS: LOVENOX 40 MG SC (14:40)
--- NOTE | 2024-10-21 14:53 | CM ---
Initial assessment completed with pt at bedside.
Pt is an 84yr old female admitted with CHF. She is currently on O2 which would be new
At baseline, pt lives in an in laws suite off her daughters home; her living space being on the second floor with stairglide access.
At home, pt is indep with the use of a RW. Pt has colostomy that she independently manages. Her daughter provides meals.
Equipment includes RW, cane, ostomy care/supplies, and Grab bars in her bathroom.
Pt is active with [facility] and intends to return to home with [facility].
Pt has been to [facility] in the past.
PCP; Breanne Mayorga
Pharm ANILA Glez
PLAN; Return to home with [facility]
[2024-10-21] MEDS: APRESOLINE 37.5 MG PO ×2 (16:07→23:05)
[2024-10-22 03:42] VITALS: BP 172/74
[2024-10-22 06:00] VITALS: BMI 15.5
[2024-10-22 07:00] VITALS: BP 160/80
--- NOTE | 2024-10-22 08:21 | VNURNOTE ---
Chart reviewed. Patient is current with [facility] nursing, PT. Will continue to follow hospital course and DC plans.
[2024-10-22] MEDS: NON-FORMULARY ITEM 1 UNIT PO (09:29)
[2024-10-22] MEDS: APRESOLINE 37.5 MG PO ×3 (09:30→22:30)
[2024-10-22] MEDS: NORVASC 10 MG PO (09:31)
[2024-10-22] MEDS: VIBRAMYCIN 260 MG IV ×2 (09:31→20:31)
[2024-10-22] MEDS: ASPIR LOW (ENTERIC COATED) 81 MG PO (09:32)
[2024-10-22] MEDS: COREG 6.25 MG PO ×2 (09:32→20:31)
[2024-10-22] MEDS: STERILE WATER FOR INJECTION 10 ML IV ×2 (09:32→22:46)
[2024-10-22] MEDS: AZACTAM 1000 MG IV ×2 (09:32→22:46)
[2024-10-22 10:26] LABS: Blood Urea Nitrogen 41 mg/dl (7-17); Calcium 9.1 mg/dl (8.4-10.2); Carbon Dioxide 30 mmol/L (22-30); Chloride 99 mmol/L (98-107); Estimated Creatinine Clearance 18 ml/min; Glucose 100 mg/dl (70-99); Magnesium 1.9 mg/dl (1.6-2.3); Potassium 3.9 mmol/L (3.5-5.1); Sodium 138 mmol/L (135-145)
[2024-10-22 11:00] VITALS: BP 146/66
--- NOTE | 2024-10-22 11:31 | W.PN.CARDCBS ---
Addendum entered and electronically signed by J Carlos Yoo DO 10/22/24 16:40:
I saw and examined the patient.
The Learning Operations Specialist's note was reviewed and I agree with the note.
Comment:
Plan:
Transition to PO lasix
Echo stable with preserved EF and overall stable MR
Cont supportive care and abx as per primary service
Outpt follow up arranged.
Please recall if needed.
Addendum entered and electronically signed by Pooja Laughlin PA-C 10/22/24 16:37:
Updated patient's daughter on the phone for 5 minutes. Reviewed echo findings and updated on plan from cardiac viewpoint, transitioning to PO lasix and continuing higher dose hydralazine. She was appreciative of call.
Original Note:
Today's Communication / Plan
-
Transition to PO lasix 40mg daily
Continue coreg, amlodipine, hydralazine
Echo overall stable.
Continue abx per primary service
Follow up arranged.
Impression / Plan
-
PCP: Dr. Breanne Mayorga
Primary tabulating supervisor: Dr. Odom
Impression:
Presented w/ SOB
Acute on chronic HFpEF
Recent admission 08/2024 w/ change in mental status
HTN, h/o hypertensive emergency
Positive D-dimer
Recovered CM EF 25 to 30% (2006) recovered by echo 03/28/17 (50 to 55% 08/2024)
Mild to moderate MR with mildly dilated aortic root
CAD
h/o NSTEMI and RCA PCI 04/2016
h/o BMS to RCA 2008
h/o anterior NM s/p BMS to LAD, RCA 2006
RBBB
HLD
NIDDM
Renal insufficiency
Interstitial fibrosis
b/l carotid artery disease with R subclavian steal
AAA s/p EVAR and femorofemoral bypass
s/p colon resection, total proctocolectomy with diverting ostomy for UC 03/2017
Left lung nodule CT scan 2018
h/o seizure disorder
h/o urinary retention
Multiple medication allergies/intolerances/noncompliance
Lexiscan sestamibi stress test April 2019: Small fixed apical septal and apical defects this was soft tissue attenuation versus infarction. Ejection fraction 60%- moderate risk study.
Echo 08/20/24: EF 50 to 55%, mild to moderate MR, mild AI, pleural effusion, sinus of Valsalva measuring 4.0 cm with mildly dilated aortic root
Echo 10/22/2024: EF 50-55%, moderate MR, mild TR, estimated PAP 27 mmHg
Plan:
-Presented with SOB. Admitted with acute heart failure exacerbation.
-Diuresed with IV lasix 40mg daily this admission. Now on hold as she appears euvolemic.
-Weight down another 2lbs overnight, down to 84 lbs 10/22. Creat stable at 1.4.
-Will transition to PO lasix 40mg daily. Check BMP in 1 week.
-Echo 10/22 noted preserved EF with moderate MR as noted above.
-Continue amlodipine, coreg, and hydralazine.
-BP stable on higher dose hydralazine 37.5 mg BID
-K improved to 3.9 s/p repletion.
-Continue abx per primary service.
-Cardiology follow up arranged.
Progress Note - Bundle Tier And Labeler
Subjective
Date of Service: October 22, 2024
No complaints.
Objective
Labs:
10/21/24 06:44
10/22/24 06:37
Labs
Hgb 14.6 g/dL (12.0-16.0) 10/21/24 06:44
Hct 43.1 % (37.0-47.0) 10/21/24 06:44
Plt Count 174 10^3/uL (130-400) 10/21/24 06:44
Sodium 138 mmol/L (135-145) 10/22/24 06:37
Potassium 3.9 mmol/L (3.5-5.1) D 10/22/24 06:37
BUN 41 mg/dl (7-17) H 10/22/24 06:37
Creatinine 1.4 mg/dL (0.6-1.0) H 10/22/24 06:37
Glucose 100 mg/dl (70-99) H 10/22/24 06:37
Troponins
10/20/24 10/20/24 10/21/24
19:13 19:38 06:44
Troponin I 0.014 Cancelled 0.027
Vital Signs and I&O:
Vital Signs
Temp Pulse Resp BP Pulse Ox
97.6 F 83 18 160/80 94
10/22/24 07:00 10/22/24 07:00 10/22/24 07:00 10/22/24 07:00 10/22/24 07:00
Vital Signs
Temp Pulse Resp BP Pulse Ox
97.6 F 83 18 160/80 94
10/22/24 07:00 10/22/24 07:00 10/22/24 07:00 10/22/24 07:00 10/22/24 07:00
Intake & Output
10/20/24 10/21/24 10/22/24 10/23/24
06:59 06:59 06:59 06:59
Intake Total 1440 / 1440
Balance 1440 / 1440
Physical Exam
Physical Exam
GEN: No distress, awake, alert, sitting up in bed
HEENT: supple, anicteric, mmm
LUNGS: CTA b/l, no wheezes/rales
CV: Reg, S1/S2, 1/6 syst murmur
EXT: No clubbing, cyanosis, or edema
NEURO: Gross non-focal
SKIN: Warm, dry, no rash
--- NOTE | 2024-10-22 14:34 | W.PN.HOSP.TC ---
Today's Communication/Plan
-
CT chest without contrast
CW ABX for possible pneumonia in meantime
Consult pulmonary
Diuresis per cards
Assessment / Plan
Assessment / Plan
Ms. Haider is a 84-year-old female with medical history of HFpEF, CAD (stents), seizure disorder, NIDDM, CKD stage III, PAD, colectomy with ileostomy, and hypothyroidism who presented with weakness and a presyncopal episode associated with hypoxia.
Approximately 2 weeks prior to arrival she developed somnolence and was treated for urinary tract infection. Initially she was treated with Keflex and later switched to Macrobid based on sensitivities, however her somnolence did not improve. Just
prior to arrival the patient had an acute mental status change while urinating and reported feeling dizzy and weak. Blood pressure at that point was on the low side and pulse ox was 86% and so she was brought via EMS to the ED. In the ED, she was
initially hypertensive with a BP of 186/100. She was afebrile. She was initially saturating in the mid 80s on room air but recovered to 95% on 4 L via nasal cannula. She had a significant leukocytosis of almost 20,000. Bicarb was 30 and
creatinine was 1.5 which is close to her baseline. Troponins were within normal limits. No evidence of acute ischemia on EKG. UA showed few bacteria and some pyuria. Her procalcitonin was elevated. TSH was low but free T4 was within normal
limits. D-dimer was elevated but within normal limits when age-adjusted. Lower extremity Dopplers negative for DVT. Chest imaging showed pulmonary vascular congestion. She was admitted for further evaluation and management of hypoxia and
pulmonary edema.
acute hypoxic respiratory insufficiency :
- Suspected secondary to pulmonary edema in setting of acute exacerbation of diastolic heart failure
- Improved oxygenation and wt with diuresis but pt still with BL crackles . VQ scan shows probably for PE but shows multiple area of matched ventilation/perfusion abnormalities on both sides- suspect pulmonary process. Consult Pulm ; tx as possible
pneumonia. Obtain CT chest without contrast
- cw Diuresing per cards
- Continue antibiotics empirically for possible respiratory infection, started on aztreonam and doxycycline considering allergies, follow-up cultures
Acute on chronic HFpEF:
- Continue diuresis with IV Lasix per cardiology-on hold today
- Beta-blockade with carvedilol 6.25 mg p.o. twice daily
- Afterload reduction with amlodipine 10 mg daily and hydralazine 25 mg p.o. 3 times daily
- Will follow-up recommendations from cardiology
CKD stage IIIb:-Appears to be at baseline renal function
- Monitor
CAD and PAD:
- Chronic, stable
- Continue aspirin 81 mg daily
- Uses Repatha 140 mg subcu every 2 weeks for hyperlipidemia
Seizure disorder:
- Stable
- Continue home carbamazepine 200 mg p.o. daily
CODE STATUS: Full code
Total time spent on today's encounter was 52 minutes which included time spent in counseling the patient/family regarding diagnosis and treatment plan as listed above, goals of care, and symptom management. Case was discussed with nursing staff,
specialists, and care coordinators/case management. All labs and imaging personally reviewed by me. Remainder the time spent in detailed review of previous records, lab data, imaging, and other medical provider documentation.
Anticipated Discharge: > 48 hours
Subjective/Interval History
-
Date of Service: October 22, 2024
Denies shortness of breath as a symptom. Her main symptom before presentation she says was fatigue and weakness.
No cough .
No CP today.
HX of COPD and seen Dr. Castro in the past
Denies history of interstitial lung disease.
Objective Data
-
Labs:
Laboratory Results
10/22/24
06:37
Sodium 138
Potassium 3.9 D
Chloride 99
Carbon Dioxide 30
BUN 41 H
Creatinine 1.4 H
Glucose 100 H
Calcium 9.1
Vital Signs:
Vital Signs
Temp Pulse Resp BP Pulse Ox
98.4 F 74 19 146/66 95
10/22/24 11:00 10/22/24 11:00 10/22/24 11:00 10/22/24 11:00 10/22/24 11:00
I&O
10/21/24 10/22/24 10/23/24
06:59 06:59 06:59
Intake Total 1440 / 1440
Balance 1440 / 1440
Review of Systems
-
Constitutional: Denies Fever or Chills
EENT: Denies Sore Throat
Respiratory: Denies Cough or Trouble Breathing
Cardiac: Denies Chest Pain
Abdomen/GI: Denies Abdominal Pain, Nausea or Vomiting
Neuro: Denies Dizzy
Physical Exam
-
General: Comfortable
Respiratory: Crackles (Bilateral lower zone more so on the left compared to the right) and Non Labored Respirations; Negative Accessory Resp Muscle Use
Cardiac: Regular Rhythm and S1/S2; Negative Tachycardic
GI: Soft and Nontender
Neuro: AO x 3
Psych: Calm
Data Reviewed
-
Medical Tests (Nuc Med, Echo etc): Other (VQ scan)
Labs: Labs Reviewed by me
--- NOTE | 2024-10-22 14:47 | CON.PUL ---
Consultation
Consultation Request
Date/Time Consultation Requested: 10/22/2024
Date/Time Consultation Performed: 10/22/2024
Requesting Provider: Dr. Camarillo
Performing Provider: Dr. Rashi Hanson
Reason for Consultation: Abnormal chest x-ray
Medical History
-
History of Present Illness:
84-year-old man with past medical history significant with chronic heart failure with preserved ejection fraction, coronary artery disease with prior stents, history of seizure disorder, hypothyroidism, type 2 diabetes, peripheral arterial disease,
chronic kidney disease stage III presented to the emergency room complaining of weakness and hypoxemia. He did report a presyncopal episode.
Chest x-ray consistent with pulmonary edema, increased interstitial markings.
Found to have significant increased proBNP.
Diuresis started. Hypoxemia slig improved but chest x-ray continues to demonstrate persistent increase interstitial markings, on exam bibasilar crackles.
I was consulted for evaluation of possible interstitial lung disease/pulmonary fibrosis.
Past Medical History
Past Medical History: Other (See assessment and plan.)
Social History
Tobacco: Former Smoker (Quit 20y ago)
Alcohol: None
Drug: None
Living: With Family
Family History
Family History: Reviewed & Not Pertinent
Allergies / Home Medications
Allergies
Allergy/AdvReac Type Severity Reaction Status Date / Time
atorvastatin Allergy MUSCLE Verified 08/19/24 10:54
ACHES
ceftriaxone sodium Allergy RED RAISED Verified 08/19/24 10:54
[From Rocephin] HIVES
levofloxacin [From Levaquin] Allergy Rash, Verified 08/19/24 10:54
chest pain
phenytoin Allergy INCREASED Verified 08/19/24 10:54
SEIZURES
Home Medications
�Medication �Instructions �Recorded �Confirmed �Last Taken �Type
aspirin 81 mg tablet,delayed 81 mg PO DAILY Blood Clot 05/27/16 08/23/24 07/24/20 History
release Prevention/Tx
carbamazepine 200 mg tablet 200 mg PO DAILY seizure disorder 05/27/16 08/23/24 07/24/20 History
cholecalciferol (vitamin D3) 25 1,000 units PO DAILY Supplement 01/28/17 08/23/24 07/24/20 History
mcg (1,000 unit) tablet
ferrous sulfate 325 mg (65 mg 325 mg PO WE Supplement 01/25/19 08/23/24 07/22/20 History
iron) tablet (FeroSul)
carvedilol 6.25 mg tablet 6.25 mg PO BID ##60 05/04/19 08/23/24 07/24/20 Rx
omeprazole magnesium 20 mg 20 mg PO DAILYPRN PRN GERD 06/26/19 08/23/24 07/22/20 History
tablet,delayed release (Prilosec
OTC)
evolocumab 140 mg/mL subcutaneous 140 mg SC Q2W High Cholesterol 08/19/24 08/23/24 Unknown History
pen injector (Repatha SureClick)
carboxymethylcellulose sodium 0.25 1 drp ophthalmic (eye) BIDPRN PRN 08/23/24 08/23/24 Unknown History
% eye drops (TheraTears) dry eyes
amlodipine 10 mg tablet (Norvasc) 10 mg PO DAILY #30 tabs 08/24/24 Unknown Rx
furosemide 40 mg tablet 40 mg PO DAILY Fluid 08/24/24 Unknown Rx
retention/Swelling 30 days #30 tabs
hydralazine 25 mg tablet 25 mg PO TID 30 days #90 tabs 08/24/24 Unknown Rx
Review of Systems
-
All other systems: Negative unless noted
Constitutional: No Symptoms
Vitals / Labs / Diagnostic Testing
Vital Signs
Temp Pulse Resp BP Pulse Ox
98.4 F 74 19 146/66 95
10/22/24 11:00 10/22/24 11:00 10/22/24 11:00 10/22/24 11:00 10/22/24 11:00
Lab Data
10/21/24 06:44
10/22/24 06:37
Microbiology
10/20/24 23:24 Nose MRSA Screen - Final
No Methicillin Resistant Staphylococcus aureus isolated.
10/20/24 22:18 Blood/Venous Blood Culture - Preliminary
No Growth in 24 hours- Final report to follow
10/20/24 22:21 Blood/Venous Blood Culture - Preliminary
No Growth in 24 hours- Final report to follow
10/21/24 11:29 Feces/Stool C. difficile GDH Antigen & Toxins - Final
Negative for toxigenic C.difficile
10/20/24 23:24 Nasal Swab Influenza Types A & B (KATIE) - Final
Negative for Influenza A & B, NAAT
Negative results must be combined with clinical observations
and patient history.
Nucleic Acid Amplification test (NAAT)performed on the
[employer] platform.
Diagnostic Testing:
Physical Exam
-
HEENT: Normocephalic
Cardiovascular: S1/S2
Respiratory: Rales (bibasilar.)
GI: Soft and Non Distended
Neurology: Awake, Alert and No Motor Deficits
Skin: Warm
General: Comfortable
Assessment
-
84-year-old man with past medical history noted. Admitted through the emergency room with shortness of breath, fatigue. Found to have abnormal chest x-ray consistent with possible pulmonary edema. proBNP was elevated. He was mildly hypoxic.
Partially responded to diuresis. Continues to have bibasilar crackles as well as abnormal chest x-ray. We were consulted on 10/22/2024 for evaluation of possible pulmonary fibrosis.
Hypoxemic respiratory Insuff.- 1 L of nasal cannula oxygen
Acute on chronic HFpEF
Increased ProBNp
Abnormal chest x-ray-rule out interstitial lung diseaseVersus pulmonary edema
CT abdomen pelvis lung cuts 01/27/2024: Mild bibasilar pulmonary fibrosis.
V/Q scan-multiple matches defects- No PE suspected.
Conditions present prior admission:
History of CVA
Peripheral arterial disease
Coronary artery disease
Chronic heart failure with preserved ejection fraction
Hypertension
Hyperlipidemia
Type 2 diabetes
Chronic kidney disease
COPD/emphysema
Seizure disorder
Hypothyroidism-
Depression
Former smoker quit 20 years ago
Prior history of AAA with endovascular repair/femorofemoral bypass/right lower extremity endarterectomy
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
Right total knee replacement
Left wrist ORIF
Assessment and plan:
Imaging reviewed, dating back to at least 2018 there is bibasilar increased interstitial markings/traction bronchiectasis consistent with pulmonary fibrosis. There is also a CAT scan from 2020 that demonstrated mild centrilobular emphysema with
persistent bibasilar fibrosis.
Based on latest CT abdomen pelvis lung cuts no significant progression.
Patient denies any occupational or environmental exposures
Denies swallowing problems
Former smoker quit many years ago
Denies shortness of breath. Activities
-
Pulmonary fibrosis in his case undifferentiated, no honeycombing or groundglass opacity.
Will obtain CT chest without IV contrast
Continue IV diuresis as you are, there may be a lag on improvement given underlying pulmonary disease- she is already improving and weaned off oxygen supplementations. Subjectively feels better.
-
Continue oxygen supplementation
-
Recommend outpatient pulmonary follow-up for evaluation of pulmonary fibrosis. Does not seem to be progressive based on multiple imaging evaluated by me.
-
Further recommendation will depend on CT scan results.
-
[facility] records reviewed. She was seen in our office in 2019. Had a telehealth visit but she lost to follow-up.
Will arrange for short-term follow-up after discharge.
[2024-10-22 15:00] VITALS: BP 141/60
[2024-10-22 15:31] VITALS: BMI 15.5
[2024-10-22] MEDS: LOVENOX 40 MG SC (15:46)
[2024-10-22 19:05] VITALS: BP 141/55
[2024-10-22 22:29] VITALS: BP 149/58
[2024-10-22] MEDS: TYLENOL 650 MG PO (23:03)
[2024-10-23 03:40] VITALS: BP 160/66
[2024-10-23 06:00] VITALS: BMI 16.3
[2024-10-23 07:00] VITALS: BP 167/66
[2024-10-23 08:08] LABS: Hematocrit 36.2 % (37.0-47.0); Hemoglobin 12.1 g/dL (12.0-16.0); Mean Corp Hgb Conc. 33.4 g/dL (33.0-37.0); Mean Corpuscular Hgb 33.5 pg (27.0-31.0); Mean Corpuscular Volume 100.3 fL (81.0-99.0); Mean Platelet Volume 11.6 fL (7.4-10.4); Platelet Count 184 10^3/uL (130-400); Red Blood Cell Count 3.61 10^6/uL (4.20-5.40); Red Cell Dist. Width 12.3 % (11.5-14.5); White Blood Cell Count 9.1 10^3/uL (4.8-10.8)
[2024-10-23] MEDS: VIBRAMYCIN 260 MG IV (08:15)
[2024-10-23] MEDS: APRESOLINE 37.5 MG PO ×2 (08:16→15:10)
[2024-10-23] MEDS: LASIX 40 MG PO (08:16)
[2024-10-23] MEDS: COREG 6.25 MG PO (08:17)
[2024-10-23] MEDS: AZACTAM 1000 MG IV (08:17)
[2024-10-23] MEDS: STERILE WATER FOR INJECTION 10 ML IV (08:17)
[2024-10-23] MEDS: NORVASC 10 MG PO (08:17)
[2024-10-23] MEDS: ASPIR LOW (ENTERIC COATED) 81 MG PO (08:17)
[2024-10-23] MEDS: NON-FORMULARY ITEM 1 UNIT PO (08:18)
[2024-10-23 08:49] LABS: Blood Urea Nitrogen 44 mg/dl (7-17); Calcium 8.9 mg/dl (8.4-10.2); Carbon Dioxide 25 mmol/L (22-30); Chloride 102 mmol/L (98-107); Estimated Creatinine Clearance 18 ml/min; Glucose 97 mg/dl (70-99); Potassium 3.8 mmol/L (3.5-5.1); Sodium 135 mmol/L (135-145); eGFR 34.15
--- NOTE | 2024-10-23 10:18 | W.PN.PUL3 ---
Today's Communication / Plan
-
for pulmonary fibrosis, need to re establish care with office.
Cont. Cardiac management.
consider short course of abx and narrow down.
No additional recommendations, will sign off
Assessment
-
84-year-old man with past medical history noted. Admitted through the emergency room with shortness of breath, fatigue. Found to have abnormal chest x-ray consistent with possible pulmonary edema. proBNP was elevated. He was mildly hypoxic.
Partially responded to diuresis. Continues to have bibasilar crackles as well as abnormal chest x-ray. We were consulted on 10/22/2024 for evaluation of possible pulmonary fibrosis.
Hypoxemic respiratory Insuff.- 1 L of nasal cannula oxygen
Acute on chronic HFpEF
Increased ProBNp
Abnormal chest x-ray-rule out interstitial lung diseaseVersus pulmonary edema
CT abdomen pelvis lung cuts 01/27/2024: Mild bibasilar pulmonary fibrosis.
V/Q scan-multiple matches defects- No PE suspected.
Conditions present prior admission:
History of CVA
Peripheral arterial disease
Coronary artery disease
Chronic heart failure with preserved ejection fraction
Hypertension
Hyperlipidemia
Type 2 diabetes
Chronic kidney disease
COPD/emphysema
Seizure disorder
Hypothyroidism-
Depression
Former smoker quit 20 years ago
Prior history of AAA with endovascular repair/femorofemoral bypass/right lower extremity endarterectomy
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
Right total knee replacement
Left wrist ORIF
Assessment and plan:
Imaging reviewed, dating back to at least 2018 there is bibasilar increased interstitial markings/traction bronchiectasis consistent with pulmonary fibrosis. There is also a CAT scan from 2020 that demonstrated mild centrilobular emphysema with
persistent bibasilar fibrosis.
Based on latest CT abdomen pelvis lung cuts no significant progression.
CT chest 10/22/2024: reviewed, Bilateral chronic fibrotic changes with emphysema overlap. small bilateral pleural effusion with cardiomegaly.
Patient denies any occupational or environmental exposures
Denies swallowing problems
Former smoker quit many years ago
Denies shortness of breath with activities at home at baseline.
-
Pulmonary fibrosis in his case undifferentiated, no honeycombing or groundglass opacity.
Recommend re-establish care with our office, she is agreeable.
-
Main reason for hospital admission suspect CHF- responding to diuresis. Oxygen has been weaned off.
Crackles on exam likely chronic.
Still with bilateral effuison on CT.
Continue IV diuresis as you are, there may be a lag on improvement given underlying pulmonary disease- she is already improving and weaned off oxygen supplementations. Subjectively feels better.
-
No evidence for PNA on CT.
Leukocytosis improved.
Afebrile.
Consider short course and narrow down abx.
-
[facility] records reviewed. She was seen in our office in 2019. Had a telehealth visit but she lost to follow-up.
Will arrange for short-term follow-up after discharge.
No additional recommendations, will sing off.
-
Dr. Hanson, updated daughter at bedside on 10/23/2024
Subjective Data
-
Date of Service:
Date of Service: October 23, 2024
Chief Complaint: Pulmonary Follow Up (ILD- abnormal CXR)
Subjective:
Feels better from the pulmonary perspective.
Denies phlegm production
Oxygen supplementation has been weaned off.
Review of Systems
Cardiopulmonary: Dyspnea (improved)
GI: Abdominal Pain (n) and Nausea (n)
Objective Data
Data Reviewed
Vital Signs / I&O / Oxygen:
Vital Signs
Temp Pulse Resp BP Pulse Ox
97.8 F 70 18 167/66 92
10/23/24 07:00 10/23/24 07:00 10/23/24 07:00 10/23/24 07:00 10/23/24 07:00
Intake and Output
10/22/24 10/23/24 10/24/24
06:59 06:59 06:59
Intake Total 1440 / 1440 470 / 470
Balance 1440 / 1440 470 / 470
SaO2 92
Nasal Cannula flow liters per 1
minute
Physical Exam
General: Comfortable
HEENT: Normocephalic
Cardiovascular: S1-S2
Respiratory: Crackles
GI: Soft and Non Distended
Neurology: Awake, Alert, AO x 3 and No Motor Deficits
Skin: Warm
Labs/Micro/Reports
Lab Data
10/23/24 07:19
10/23/24 07:19
Microbiology
10/20/24 22:21 Blood/Venous Blood Culture - Preliminary
No Growth in 48 hours- Final report to follow
10/20/24 22:18 Blood/Venous Blood Culture - Preliminary
No Growth in 48 hours- Final report to follow
10/20/24 23:24 Nose MRSA Screen - Final
No Methicillin Resistant Staphylococcus aureus isolated.
10/21/24 11:29 Feces/Stool C. difficile GDH Antigen & Toxins - Final
Negative for toxigenic C.difficile
10/20/24 23:24 Nasal Swab Influenza Types A & B (KATIE) - Final
Negative for Influenza A & B, NAAT
Negative results must be combined with clinical observations
and patient history.
Nucleic Acid Amplification test (NAAT)performed on the
[employer] platform.
[2024-10-23 11:20] VITALS: BP 135/54
--- NOTE | 2024-10-23 12:21 | W.PN.HOSP.TC ---
Addendum entered and electronically signed by Dk Hanks MD 10/24/24 18:22:
Pt meets criteria for severe protein calorie malnutrition of chronic illness with prolonged inadequate po intake <75% for >1 month, severe loss subcutaneous fat (orbital, tricep) & severe loss muscle (temporal, clavicle)
Based on available data no pneumonia
Original Note:
Today's Communication/Plan
-
PT eval and discharge.
Assessment / Plan
Assessment / Plan
Ms. Haider is a 84-year-old female with medical history of HFpEF, CAD (stents), seizure disorder, NIDDM, CKD stage III, PAD, colectomy with ileostomy, and hypothyroidism who presented with weakness and a presyncopal episode associated with hypoxia.
Approximately 2 weeks prior to arrival she developed somnolence and was treated for urinary tract infection. Initially she was treated with Keflex and later switched to Macrobid based on sensitivities, however her somnolence did not improve. Just
prior to arrival the patient had an acute mental status change while urinating and reported feeling dizzy and weak. Blood pressure at that point was on the low side and pulse ox was 86% and so she was brought via EMS to the ED. In the ED, she was
initially hypertensive with a BP of 186/100. She was afebrile. She was initially saturating in the mid 80s on room air but recovered to 95% on 4 L via nasal cannula. She had a significant leukocytosis of almost 20,000. Bicarb was 30 and
creatinine was 1.5 which is close to her baseline. Troponins were within normal limits. No evidence of acute ischemia on EKG. UA showed few bacteria and some pyuria. Her procalcitonin was elevated. TSH was low but free T4 was within normal
limits. D-dimer was elevated but within normal limits when age-adjusted. Lower extremity Dopplers negative for DVT. Chest imaging showed pulmonary vascular congestion. She was admitted for further evaluation and management of hypoxia and
pulmonary edema.
acute hypoxic respiratory insufficiency :
- Suspected secondary to pulmonary edema in setting of acute exacerbation of diastolic heart failure
- Improved oxygenation and wt with diuresis but pt still with BL crackles . VQ scan shows probably for PE but shows multiple area of matched ventilation/perfusion abnormalities on both sides- suspect pulmonary process. CT chest without contrast
shows emphysema and chronic fibrosis. No focal consolidation.
- cw Diuresing per cards-Lasix transition to oral.
- Continue antibiotics empirically for possible respiratory infection-with no focal consolidation or infiltrate on CT will narrow antibiotics of doxycycline and complete a 7-day course.
- Follow-up with pulmonary regarding chronic interstitial fibrosis. Appreciate pulmonary input.
Acute on chronic HFpEF:
- Continue diuresis with IV Lasix per cardiology-transition into oral.
- Beta-blockade with carvedilol 6.25 mg p.o. twice daily
- Afterload reduction with amlodipine 10 mg daily and hydralazine 25 mg p.o. 3 times daily
- Will follow-up recommendations from [id number] with cardiology as outpatient.
CKD stage IIIb:-Appears to be at baseline renal function
- Monitor
CAD and PAD:
- Chronic, stable
- Continue aspirin 81 mg daily
- Uses Repatha 140 mg subcu every 2 weeks for hyperlipidemia
Seizure disorder:
- Stable
- Continue home carbamazepine 200 mg p.o. daily
CODE STATUS: Full code
Reached clinical stability for discharge home. She lives with daughter in the in-law suite. Will get a PT eval prior to discharge.
Total time of discharge 32 minutes
Anticipated Discharge: Today
Subjective/Interval History
-
Date of Service: October 23, 2024
Feels better. Denies shortness of breath or cough. On room air. Denies any chest pain.
No nausea vomiting. Tolerating diet.
Denies any dizziness.
Objective Data
-
Labs:
Laboratory Results
10/23/24
07:19
WBC 9.1
Hgb 12.1
Hct 36.2 L
Plt Count 184
Sodium 135
Potassium 3.8
Chloride 102
Carbon Dioxide 25
BUN 44 H
Creatinine 1.5 H
Glucose 97
Calcium 8.9
Vital Signs:
Vital Signs
Temp Pulse Resp BP Pulse Ox
98 F 69 16 135/54 95
10/23/24 11:20 10/23/24 11:20 10/23/24 11:20 10/23/24 11:20 10/23/24 11:20
I&O
10/22/24 10/23/24 10/24/24
06:59 06:59 06:59
Intake Total 1440 / 1440 470 / 470
Balance 1440 / 1440 470 / 470
Physical Exam
-
General: No Apparent Distress
HEENT: Moist Mucous Membranes
Respiratory: Crackles (Bilateral lower zone) and Non Labored Respirations; Negative Wheezes or Accessory Resp Muscle Use
Cardiac: Regular Rhythm and S1/S2; Negative Tachycardic
GI: Soft and Nontender
Neuro: AO x 3
Psych: Calm
Data Reviewed
-
CT Scan: Report Reviewed by me (Chest CT)
Labs: Labs Reviewed by me
[2024-10-23] MEDS: LOVENOX 40 MG SC (13:15)
[2024-10-23 14:20] VITALS: BP 134/58; PULSE 74; O2SAT 96
[2024-10-23 15:00] VITALS: BP 148/66
--- NOTE | 2024-10-23 15:18 | CM ---
Addendum entered by Conchita Kam 10/23/24 15:33:
Per Hospitalist, patient confirmed for discharge today. Call to patients daughter, Rosalba, will provide transport home. IMM verbally reviewed, agreeable to discharge, placed in chart.
Original Note:
CM reviewed chart, reviewed PT recommendations of VN. CM spoke with patients daughter, Rosalba, confirmed patient is [facility]. Daughter reports she is able to provide transportation home if patient is for discharge today, will confirm with
Hospitalist. CM will continue to follow for all discharge planning needs.
Plan; home with daughter, [facility]
--- NOTE | 2024-10-23 15:30 | PN.CDI ---
CDI
- -
CDI:
Physician Documentation Request
Admit Date: 10/20/24 23:10
Dear Doctor Demario,
Please review the following and provide your response in the progress notes.
Clinical Indicators:
Pt admitted with acute on chronic HFpEF
BMI today 16.3
Nutrition consult 10/22,' UBW about 85lb following diuresis per records and pt report.....Although pt reports po intake is good, doubt adequacy of intake given persistent low body weight. Pt meets criteria for severe protein calorie malnutrition of
chronic illness with prolonged inadequate po intake <75% for >1 month, severe loss subcutaneous fat (orbital, tricep) & severe loss muscle (temporal, clavicle). Nutrition will continue to encourage intake....'
Based on the above information and your assessment, which of the following most accurately represents the patient's nutritional status?
Severe Protein Calorie Malnutrition
Other (please specify)
Leslie Criteria (ACP Hospitalist 2017)
2 or more criteria must be present for either
non severe or severe malnutrition
Note that the criteria differs related to the
presence of an acute or chronic illness
Acute Illness Chronic Illness
Energy Intake Non Severe: <75% for >7 days Non Severe: <75% for >1 month
Severe: <50% for >5 days Severe: <75% for >1 month
Weight Loss Non Severe: 1-2% over 1 week Non Severe: 5% over 1 month
5% over 1 month 7.5% over 3 months
7.5% over 3 months 10% over 6 months
1 year N/A 20% over 1 year
Severe: >2% over 1 week Severe: >5% over 1 month
>5% over 1 month >7.5% over 3 months
>7.5% over 3 months >10% over 6 months
1 year N/A >20% over 1 year
Body Fat Non Severe: Mild Decrease Non Severe: Mild Loss
Severe: Moderate Decrease Severe: Severe Loss
Muscle Mass Non Severe: Mild Decrease Non Severe: Mild Loss
Severe: Moderate Decrease Severe: Severe Loss
Fluid Accumulation Non Severe: Mild Accumulation Non Severe: Mild Accumulation
Severe: Moderate to severe Severe: Moderate to severe
accumulation accumulation
Reduced Transportation Engineering Technician Strength Non Severe: N/A Non Severe: N/A
Severe: Measurably reduced Severe: Measurably reduced
Use of terms such as suspected, likely, concern for, or probable (associated with a specific diagnosis that is being evaluated, monitored, or treated as if it exists) are acceptable and can be coded in the inpatient setting, when documented at the
time of discharge.
Thank you,
Linda Mayorga RN
CDI Specialist
[place] [facility]
Please use your independent medical judgment in providing your response.
--- NOTE | 2024-10-23 15:38 | PN.CDI ---
CDI
- -
CDI:
Physician Documentation Request
Admit Date: 10/20/24 23:10
Dear Doctor Demario,
Please review the following and provide your response in the progress notes.
Clinical Indicators:
Pt admitted with acute on chronic HFpEF
Documented per H&P,' Leukocytosis - Possibly UTI vs PNA.'
Progress note 10/22,' acute hypoxic respiratory insufficiency :- Suspected secondary to pulmonary edema in setting of acute exacerbation of diastolic heart failure Improved oxygenation and wt with diuresis but pt still with BL crackles . VQ scan
shows probably for PE but shows multiple area of matched ventilation/perfusion abnormalities on both sides- suspect pulmonary process. Consult Pulm ; tx as possible pneumonia. Obtain CT chest without contrast...- Continue antibiotics empirically for
possible respiratory infection, started on aztreonam and doxycycline...'
Progress note 10/23,' Continue antibiotics empirically for possible respiratory infection-with no focal consolidation or infiltrate on CT will narrow antibiotics of doxycycline and complete a 7-day course.'
Please provide a status update for the documented suspected Pneumonia:
Pneumonia -a valid diagnosis /still being monitored/treated
Pneumonia -ruled out
Other ( please specify)
Use of terms such as suspected, likely, concern for, or probable (associated with a specific diagnosis that is being evaluated, monitored, or treated as if it exists) are acceptable and can be coded in the inpatient setting, when documented at the
time of discharge.
Thank you,
Linda Mayorga RN
CDI Specialist
[place] [facility]
Please use your independent medical judgment in providing your response.
--- NOTE | 2024-10-23 17:31 | W.DCSUMMARY ---
Discharge Summary
Discharge Data
Date of Admission: 10/20/24
Date of Discharge: 10/23/24
-
Pending Results: No
Hospital Course
Primary diagnosis:
Acute hypoxic respiratory insufficiency-resolved
Acute on chronic heart failure with preserved EF
Chronic interstitial fibrosis
Secondary diagnosis:
Chronic kidney disease stage IIIb
Coronary artery disease
Peripheral arterial disease
Seizure disorder
Hospital course:
Patient presented with weakness and presyncopal episode associated with hypoxia.Approximately 2 weeks prior to arrival she developed somnolence and was treated for urinary tract infection. Initially she was treated with Keflex and later switched to
Macrobid based on sensitivities, however her somnolence did not improve. Just prior to arrival the patient had an acute mental status change while urinating and reported feeling dizzy and weak. Blood pressure at that point was on the low side and
pulse ox was 86% and so she was brought via EMS to the ED. In the ED, she was initially hypertensive with a BP of 186/100. She was afebrile. She was initially saturating in the mid 80s on room air but recovered to 95% on 4 L via nasal cannula.
Her initial chest x-ray showed increased pulmonary vascularity and there also was tiny bilateral pleural effusion. There was also bilateral chronic interstitial markings. Her BNP was elevated at 6170 though lower than the value from August 2024.
Her weight had gone up and admission. It was 98 pounds. She improved clinically as well as her hypoxia resolved with diuresis and her weight came down to 89 pounds on the day of discharge. He was seen by cardiology. Had an echocardiogram which
showed EF of 50 to 55%, moderate MR, mild TR. MR on prior echo in August 2024 was mild to moderate and now moderate. The weight improved she was transition to oral Lasix.
Despite diuresis and improvement in clinical symptoms she clinically had crackles in the lower zones. She was seeing pulmonary in the past but denied any prior ILD history. Pulmonary consultation was obtained. CT chest showed bilateral chronic
fibrotic changes and emphysema. She had no reactive airways. Pulmonary reestablish outpatient follow-up going forward for her.
Chronic kidney disease stage IIIb was stable during the stay here.
Consultants on board:
Cardiology-Kaylynn Sosa
Pulmonary-Rashi Yarbrough
Discharge Plan
-
Patient Disposition: Home with Home Care
Discharge Diagnosis/Procedures: Acute hypoxic respite insufficiency which resolved, acute on chronic heart failure with preserved EF, chronic ILD, chronic kidney disease stage IIIb
Diet: 2 Gram Sodium
Activity: As tolerated
Driving Restrictions: As prior to admission
Bathing Restrictions: None
Other Services: VN and PT
Specialty Instructions: Weigh Daily- Call MD for wt gain/loss 3 lbs overnight/5 lbs in 1 week
Instructions: *[facility] Heart Failure Instructions
Referrals:
Rashi Mesa MD [Active] - in two weeks
(6MWT/PFT- ILD.
May see CAR REPAIRER)
Breanne Mayorga, DO [Family Provider] - in less than 1 week
Pooja Laughlin PA-C [Specified Professional Personl] - 11/07/24 2:00 pm (You have a follow up visit with Dr. Odom's PAPooja in the [facility]. Please call with questions. )
Prescriptions:
New
doxycycline hyclate 100 mg tablet
100 mg PO BID Qty: 7 0RF
Continued
aspirin 81 MG tablet,delayed release (/EC)
81 mg PO DAILY
carbamazepine 200 MG tablet
200 mg PO DAILY
Patient Comments:
01/25/19: Brand Medically Necessary
cholecalciferol (vitamin D3) 1,000 UNITS tablet
1,000 units PO DAILY
ferrous sulfate [FeroSul] 325 MG tablet
325 mg PO WE
carvedilol 6.25 MG tablet
6.25 mg PO BID Qty: 60 0RF
omeprazole magnesium [Prilosec OTC] 20 MG tablet,delayed release (DR/EC)
20 mg PO DAILYPRN PRN (Reason: GERD)
Repatha SureClick 140 mg/mL pen injector
140 mg SC Q2W
TheraTears 0.25 % Drops
1 drp OPHTHALMIC (EYE) BIDPRN PRN (Reason: dry eyes)
furosemide 40 mg Tablet
40 mg PO DAILY 30 Days Qty: 30 0RF
hydralazine 25 mg Tablet
25 mg PO TID 30 Days Qty: 90 0RF
amlodipine [Norvasc] 10 mg tablet
10 mg PO DAILY Qty: 30 0RF
Discharge Orders:
Discharge Patient (As Directed); Ordered 10/23/24
Ordered By: Dk Hanks
Discharge Date and Time
Print Language: ROMANSH
--- NOTE | 2024-10-24 11:36 | W.HF.CON ---
Heart Failure
- LV Function
Left ventricular function study result: LV Ejection fraction >/= 50%
Ejection Fraction Percentage: 50-55
- ARNI
Patient already on ARNI: No
Heart Failure ARNI Not Indicated: LV Ejection Fraction >/= 40%
- ACEI/ARB
Heart Failure ACEI/ARB Not Indicated: LV Ejection Fraction > 40%
- Beta Monica
Patient already on Evidence Based Beta Monica: Yes
- Mineralocorticord Receptor Antagonist
Patient already on MRA: No
Heart Failure MRA Not Indicated: LV Ejection Fraction > 40%
- SGLT-2 Inhibitor
Patient already on SGLT-2 Inhibitor: No
Heart Failure SGLT-2 Inhibitor Contraindication: Patient Refusal
- NYHA CHF Classification
NYHA CHF Classification Level: Class III - Symptoms w/ min exertion, interferes w/ nml daily activity (mod MR & ILD)
- ACC/AHA Stage
ACC/AHA Stage: Stage C: Symptomatic Heart Failure
== END 2024-10-23 17:55 | disposition home health service (06) | DRG 291 ==
LOC: 4 WEST ACU 23:10
PROVIDERS: ADMITTING PHYSICIAN Internal Medicine; ATTENDING PHYSICIAN Internal Medicine; CONSULT PHYSICIAN Internal Medicine Cardiovascular Disease; CONSULT PHYSICIAN Internal Medicine Critical Care Medicine; EMERGENCY PHYSICIAN Emergency Medicine; FAMILY PHYSICIAN Family Medicine
DX: I13.0 Hypertensive heart and chronic kidney disease with heart failure and stage 1 through stage 4 chronic kidney disease, or unspecified chronic kidney disease (principal); E43 Unspecified severe protein-calorie malnutrition; I50.33 Acute on chronic diastolic (congestive) heart failure; K51.90 Ulcerative colitis, unspecified, without complications; Z68.1 Body mass index [BMI] 19.9 or less, adult; R09.02 Hypoxemia; N18.32 Chronic kidney disease, stage 3b; E11.22 Type 2 diabetes mellitus with diabetic chronic kidney disease; J84.10 Pulmonary fibrosis, unspecified; I25.10 Atherosclerotic heart disease of native coronary artery without angina pectoris; E11.51 Type 2 diabetes mellitus with diabetic peripheral angiopathy without gangrene; G40.909 Epilepsy, unspecified, not intractable, without status epilepticus; E03.9 Hypothyroidism, unspecified; E78.00 Pure hypercholesterolemia, unspecified; Z79.82 Long term (current) use of aspirin; J44.9 Chronic obstructive pulmonary disease, unspecified; Z96.651 Presence of right artificial knee joint; Z87.891 Personal history of nicotine dependence; Z88.1 Allergy status to other antibiotic agents; I44.0 Atrioventricular block, first degree; I45.10 Unspecified right bundle-branch block; Z86.79 Personal history of other diseases of the circulatory system; Z82.49 Family history of ischemic heart disease and other diseases of the circulatory system; Z79.899 Other long term (current) drug therapy; K21.9 Gastro-esophageal reflux disease without esophagitis; Z93.2 Ileostomy status; F32.A Depression, unspecified; Z86.73 Personal history of transient ischemic attack (TIA), and cerebral infarction without residual deficits; Z11.52 Encounter for screening for COVID-19; E87.6 Hypokalemia; I25.2 Old myocardial infarction; J47.9 Bronchiectasis, uncomplicated; Z90.49 Acquired absence of other specified parts of digestive tract; Z95.5 Presence of coronary angioplasty implant and graft
CPT/HCPCS: 93308; 70450; 71046; 71250; 78582; 80048; 80053; 81003; 81015; 83605; 83735; 83880; 84145; 84439; 84443; 84484; 85025; 85027; 85379; 87040; 87070; 87324; 87449; 87502; 87811; 93005; 93321; 93325; 93970; 96365; 96375; 97162; 99285; A9540; A9567

== ENCOUNTER → 2024-11-07 11:49 | Outpatient (REF) | payer OTHER, SELFPAY | LOC: CLAB 11:49 | PROVIDERS: ATTENDING PHYSICIAN Family Medicine | DX: R30.0 Dysuria (principal) | CPT/HCPCS: 87077; 87086; 87088 ==

== ENCOUNTER → 2024-11-23 08:58 | Outpatient (REF) | payer OTHER, SELFPAY | LOC: RAD 08:58 | PROVIDERS: ATTENDING PHYSICIAN Registered Nurse; FAMILY PHYSICIAN Family Medicine | DX: I73.9 Peripheral vascular disease, unspecified (principal); I71.43 Infrarenal abdominal aortic aneurysm, without rupture | CPT/HCPCS: 76770; 93922; 93925 ==

== ENCOUNTER → 2025-05-30 09:16 | Outpatient (REF) | payer OTHER, SELFPAY | LOC: RAD 09:16 | PROVIDERS: ATTENDING PHYSICIAN Registered Nurse; FAMILY PHYSICIAN Family Medicine | DX: I71.43 Infrarenal abdominal aortic aneurysm, without rupture (principal); I73.9 Peripheral vascular disease, unspecified | CPT/HCPCS: 76770; 93922; 93925 ==